=== PATIENT | male | born 1960 | race Caucasian/White ===

== ENCOUNTER 2017-04-30 14:40 | Emergency (ER) | payer SELFPAY ==
[~2017-04-30] VITALS: Ht 154.9 cm; Wt 54.5 kg
[~2017-04-30 14:40] MED LIST: OLAN5Z PO
[2017-04-30] MEDS ORDERED: GLIP10 PO (14:52)
[2017-04-30] MEDS ORDERED: METF500T4 PO (14:52)
[2017-04-30 15:01] LABS: GLUCOSE,POINT OF CARE 195 MG/DL (70-110)
[2017-04-30 18:13] LABS: APPEARANCE,URINE CLEAR (CLEAR); GLUCOSE, URINE (UA) >=1000 mg/dL (NEGATIVE); KETONES,URINE TRACE mg/dL (NEGATIVE); LEUKOCYTE ESTERASE ,URINE NEGATIVE (NEGATIVE); OCCULT BLOOD,URINE NEGATIVE (NEGATIVE); PH,URINE 6.5 (5.0-8.0); PROTEIN,URINE NEGATIVE (NEGATIVE)
[2017-04-30 18:16] LABS: RBC,URINE 0-2 /HPF (0-2); SQUAMOUS EPITHELIAL CELL,UR Rare /LPF (None Seen); WBC,URINE 0-2 /HPF (0-5)
[2017-04-30] MEDS ORDERED: HYDROCODONE/ACETAMINOPHEN 10-325 MG TABLET PO ONE (18:30)
[2017-04-30 19:16] VITALS: BP 121/81
== END 2017-04-30 19:17 | disposition home or self-care (01) ==
LOC: EMS 14:42
DX: K40.90 Unilateral inguinal hernia, without obstruction or gangrene, not specified as recurrent (principal); I10 Essential (primary) hypertension; E11.9 Type 2 diabetes mellitus without complications
CPT/HCPCS: 82962; 99283

== ENCOUNTER 2020-02-15 17:53 | Emergency (ER) | payer MEDICAID ==
[~2020-02-15] VITALS: Ht 170.2 cm; Wt 100.0 kg
[~2020-02-15 17:53] MED LIST changes: +GLIP10 PO; +METF-960 PO; -OLAN5Z PO
[2020-02-15] MEDS ORDERED: PROPARACAINE HCL 0.5% 15 ML OPHTHALMIC SOLUTION OU ONE (18:15)
[2020-02-15] MEDS ORDERED: ERYTHROMYCIN 0.5% 3.5 GM TUBE OPHTHALMIC OINTMENT OU ONE (18:15)
[2020-02-15] MEDS ORDERED: FLUORESCEIN SODIUM 1 MG STRIP OU ONE (18:15)
[2020-02-15] MEDS ORDERED: NEOMYCIN/BACITRACIN/POLYMYXIN B 3.5 GM OPHTHALMIC OINTMENT OU ONE (18:30)
[2020-02-15 19:06] VITALS: BP 160/70
== END 2020-02-15 19:20 | disposition home or self-care (01) ==
LOC: EMS 17:58
DX: H10.213 Acute toxic conjunctivitis, bilateral (principal); E11.9 Type 2 diabetes mellitus without complications; I10 Essential (primary) hypertension; Z79.84 Long term (current) use of oral hypoglycemic drugs

== ENCOUNTER 2021-12-13 17:28 | Inpatient (IN) | payer MEDICAID ==
[~2021-12-13] VITALS: Ht 167.6 cm; Wt 48.2 kg
[~2021-12-13 17:28] MED LIST changes: +METF-1211 PO; -METF-960 PO
[2021-12-13 19:30] LABS: BASOPHILS % (AUTO) 0.6 % (0.0-2.0); EOSINOPHILS % (AUTO) 0.3 % (1.0-6.0); HEMATOCRIT 37.4 % (41-53); HEMOGLOBIN 12.9 g/dL (13.5-17.5); LYMPHOCYTES # (AUTO) 0.5 K/uL (1.0-4.8); LYMPHOCYTES % (AUTO) 6.1 % (22.0-44.0); MEAN CORPUSCULAR HEMOGLOBIN 31.8 pg (26.0-34.0); MEAN CORPUSCULAR HGB CONC 34.5 G/dL (31.0-37.0); MEAN CORPUSCULAR VOLUME 92 fL (80-100); MONOCYTES # (AUTO) 0.4 K/uL (0.1-1.0); MONOCYTES % (AUTO) 4.5 % (2.0-9.0); NEUTROPHILS % (AUTO) 88.5 % (40.0-70.0); PLATELET COUNT (AUTO) 255 K/uL (150-450); RED BLOOD CELL COUNT(AUTO) 4.05 MIL/uL (4.50-5.90); RED CELL DISTRIBUTION WIDTH 14.2 % (11.5-14.5)
[2021-12-13 19:39] LABS: ANION GAP 5 mmol/L (8-16); CALCIUM, TOTAL 8.2 mg/dL (8.8-10.5); CARBON DIOXIDE 30 mmol/L (22-29); CHLORIDE 94 mmol/L (98-107); CREATININE 0.74 mg/dL (0.60-1.30); GLOMERULAR FILTR. RATE CALC > 60 mL/min (>60); GLUCOSE,RANDOM 234 mg/dL (70-110); SODIUM SERUM 129 mmol/L (136-145); UREA NITROGEN, BLOOD 13 mg/dL (7-18)
[2021-12-13 19:47] LABS: D-DIMER 35.2 mg/L FEU (0.00-0.50)
[2021-12-13 19:56] LABS: ALANINE AMINOTRANSFERASE 16 U/L (12-78); ALBUMIN 1.9 g/dL (3.4-5.0); ALKALINE PHOSPHATASE 121 U/L (46-116); ASPARTATE AMINOTRANSFERASE 17 U/L (15-37); BILIRUBIN,TOTAL 0.6 mg/dL (0.1-1.0); THYROID STIMULATING HORMONE 1.04 uIU/mL (0.36-3.74); TOTAL PROTEIN, SERUM 7.6 g/dL (6.4-8.2)
[2021-12-13 20:17] LABS: COVID AG,FIA SOURCE NASAL SWAB
[2021-12-13] MEDS ORDERED: SODIUM CHLORIDE 0.9% 100 ML ONE (20:45)
[2021-12-13] MEDS ORDERED: IOHEXOL 350 MG/ML 100 ML VIAL ONE (20:46)
[2021-12-13] MEDS ORDERED: HEPARIN SODIUM,PORCINE 5,000 UNITS/ML VIAL IVP PRN ×2 (22:45)
[2021-12-13] MEDS ORDERED: DOXYCYCLINE HYCLATE 100 MG in DEXTROSE 5%-WATER 100 ML IV ONE (22:45)
[2021-12-13] MEDS ORDERED: DEXAMETHASONE SOD PHOS 4 MG/ML 5 ML VIAL IVP ONE (22:45)
[2021-12-13] MEDS ORDERED: CefTRIAXone 1 GM/DEXTROSE 50 ML IV ONE (22:45)
[2021-12-13] MEDS ORDERED: HEPARIN SODIUM,PORCINE 5,000 UNITS/ML VIAL IVP ONE (22:45)
[2021-12-13] MEDS ORDERED: HEPARIN SODIUM 25000 UNITS/D5W 250 ML IV PRN (22:45)
[2021-12-13 23:09] LABS: INR 1.2 (0.9-1.1); PROTHROMBIN TIME 12.2 SEC (9.4-11.6)
[2021-12-13] MEDS ORDERED: ONDANSETRON HCL 4 MG/2 ML VIAL IVP PRN (23:30)
[2021-12-13] MEDS ORDERED: ENOXAPARIN SODIUM 60 MG/0.6 ML PF SYRINGE SQ SCH (23:45)
[2021-12-14] VITALS (7 sets, daily range): BP systolic 98–127; BP diastolic 62–77
[2021-12-14] MEDS ORDERED: INSULIN GLARGINE,HUM.REC.ANLOG 100 UNITS/ML SQ SCH
[2021-12-14] MEDS ORDERED: HEPARIN SODIUM,PORCINE 5,000 UNITS/ML VIAL SQ SCH
[2021-12-14] MEDS ORDERED: DEXTROSE 50%-WATER 25 GM/50 ML SYRINGE IVP PRN
[2021-12-14 01:00] LABS: GLUCOSE,POINT OF CARE 221 MG/DL (70-110)
[2021-12-14] MEDS: INSULIN GLARGINE,HUM.REC.ANLOG 100 UNITS/ML SQ SCH ×2 (03:25→21:23)
[2021-12-14 04:01] LABS: GLUCOMETER DEV NAME(LOC) 5S.2B; GLUCOSE,POINT OF CARE 244 MG/DL (70-110)
[2021-12-14 06:34] LABS: EOSINOPHILS % (AUTO) 0 % (1.0-6.0); HEMATOCRIT 38.3 % (41-53); HEMOGLOBIN 13.4 g/dL (13.5-17.5); LYMPHOCYTES # (AUTO) 0.4 K/uL (1.0-4.8); LYMPHOCYTES % (AUTO) 7.5 % (22.0-44.0); MEAN CORPUSCULAR HEMOGLOBIN 32.3 pg (26.0-34.0); MEAN CORPUSCULAR VOLUME 92 fL (80-100); MONOCYTES # (AUTO) 0.1 K/uL (0.1-1.0); MONOCYTES % (AUTO) 1.8 % (2.0-9.0); NEUTROPHILS # (AUTO) 5.3 K/uL (1.8-7.7); PLATELET COUNT (AUTO) 286 K/uL (150-450); RED BLOOD CELL COUNT(AUTO) 4.15 MIL/uL (4.50-5.90); RED CELL DISTRIBUTION WIDTH 14.1 % (11.5-14.5)
[2021-12-14 06:39] LABS: NEUTROPHILS % (AUTO) 90.7 % (40.0-70.0)
[2021-12-14] MEDS: INSULIN LISPRO 100 UNITS/ML SQ PRN ×4 (06:52→21:29)
[2021-12-14] MEDS ORDERED: SODIUM CHLORIDE 0.9% 1,000 ML ONE (07:56)
[2021-12-14] MEDS: ENOXAPARIN SODIUM 60 MG/0.6 ML PF SYRINGE SQ SCH ×2 (10:48→21:24)
[2021-12-14] MEDS: AZITHROMYCIN 500 MG/NS 250 ML IV SCH (10:49)
[2021-12-14 13:06] LABS: GLUCOMETER DEV NAME(LOC) 5S.1; GLUCOSE,POINT OF CARE 368 MG/DL (70-110)
[2021-12-14 16:51] LABS: GLUCOMETER DEV NAME(LOC) 5S.2B; GLUCOSE,POINT OF CARE 392 MG/DL (70-110)
[2021-12-14 20:06] LABS: GLUCOMETER DEV NAME(LOC) 5S.1; GLUCOSE,POINT OF CARE 332 MG/DL (70-110)
[2021-12-14 22:11] LABS: GLUCOMETER DEV NAME(LOC) 5S.2B; GLUCOSE,POINT OF CARE 303 MG/DL (70-110)
[2021-12-15] MEDS: CefTRIAXone 1 GM/DEXTROSE 50 ML IV SCH ×2 (00:25→22:50)
[2021-12-15 05:11] VITALS: BP 117/58
[2021-12-15] MEDS: INSULIN LISPRO 100 UNITS/ML SQ PRN ×4 (06:42→20:51)
[2021-12-15 06:51] LABS: APPEARANCE,URINE CLEAR (CLEAR); BILIRUBIN,URINE NEGATIVE (NEGATIVE); GLUCOSE, URINE (UA) 500 mg/dL (NEGATIVE); KETONES,URINE NEGATIVE (NEGATIVE); LEUKOCYTE ESTERASE ,URINE NEGATIVE (NEGATIVE); NITRATE,URINE NEGATIVE (NEGATIVE); OCCULT BLOOD,URINE NEGATIVE (NEGATIVE); PH,URINE 6.5 (5.0-8.0); PROTEIN,URINE NEGATIVE (NEGATIVE)
[2021-12-15 07:17] VITALS: BP 121/71
[2021-12-15 07:52] LABS: BACTERIA,URINE None Seen /HPF (None Seen); RBC,URINE None Seen /HPF (0-2); WBC,URINE None Seen /HPF (0-5)
[2021-12-15 07:56] LABS: GLUCOMETER DEV NAME(LOC) 5S.2B; GLUCOSE,POINT OF CARE 279 MG/DL (70-110)
[2021-12-15] MEDS: ENOXAPARIN SODIUM 60 MG/0.6 ML PF SYRINGE SQ SCH (07:57)
[2021-12-15] MEDS: AZITHROMYCIN 500 MG/NS 250 ML IV SCH (07:58)
[2021-12-15 08:41] LABS: MAGNESIUM 1.8 mg/dL (1.80-2.40); PHOSPHORUS 3.3 mg/dL (2.5-4.9)
[2021-12-15 11:07] VITALS: BP 136/82
[2021-12-15 12:06] LABS: GLUCOMETER DEV NAME(LOC) 5S.1; GLUCOSE,POINT OF CARE 325 MG/DL (70-110)
[2021-12-15] MEDS ORDERED: *CLINICAL-WARFARIN SODIUM DOSING CLINICAL ONE (14:15)
[2021-12-15] MEDS ORDERED: HEPARIN SODIUM 25000 UNITS/D5W 250 ML IV PRN (15:15)
[2021-12-15] MEDS ORDERED: HEPARIN SODIUM,PORCINE 5,000 UNITS/ML VIAL IVP ONE (15:15)
[2021-12-15] MEDS ORDERED: HEPARIN SODIUM,PORCINE 5,000 UNITS/ML VIAL IVP PRN ×2 (15:15)
[2021-12-15 16:04] LABS: BASOPHILS % (AUTO) 0.4 % (0.0-2.0); EOSINOPHILS % (AUTO) 0.3 % (1.0-6.0); HEMATOCRIT 38.8 % (41-53); HEMOGLOBIN 13.2 g/dL (13.5-17.5); LYMPHOCYTES # (AUTO) 0.6 K/uL (1.0-4.8); LYMPHOCYTES % (AUTO) 8.1 % (22.0-44.0); MEAN CORPUSCULAR HEMOGLOBIN 31.5 pg (26.0-34.0); MEAN CORPUSCULAR HGB CONC 33.9 G/dL (31.0-37.0); MEAN CORPUSCULAR VOLUME 93 fL (80-100); MONOCYTES # (AUTO) 0.3 K/uL (0.1-1.0); MONOCYTES % (AUTO) 4.2 % (2.0-9.0); PLATELET COUNT (AUTO) 300 K/uL (150-450); RED BLOOD CELL COUNT(AUTO) 4.17 MIL/uL (4.50-5.90); RED CELL DISTRIBUTION WIDTH 14.2 % (11.5-14.5)
[2021-12-15] MEDS ORDERED: WARFARIN SODIUM 5 MG TABLET PO ONE (17:00)
[2021-12-15] MEDS: MetFORMIN HCL 500 MG TABLET PO SCH (17:30)
[2021-12-15 19:17] VITALS: BP 123/76
[2021-12-15] MEDS: INSULIN GLARGINE,HUM.REC.ANLOG 100 UNITS/ML SQ SCH (20:49)
[2021-12-15] MEDS: ENOXAPARIN SODIUM 40 MG/0.4 ML PF SYRINGE SQ SCH (20:49)
[2021-12-15 21:06] LABS: GLUCOMETER DEV NAME(LOC) 5S.1; GLUCOSE,POINT OF CARE 226 MG/DL (70-110)
[2021-12-15 21:41] LABS: GLUCOMETER DEV NAME(LOC) 5N.3; GLUCOSE,POINT OF CARE 286 MG/DL (70-110)
[2021-12-15 23:35] VITALS: BP 115/77
[2021-12-16 04:20] VITALS: BP 118/51
[2021-12-16 06:44] LABS: BASOPHILS % (AUTO) 0.3 % (0.0-2.0); EOSINOPHILS % (AUTO) 0.7 % (1.0-6.0); HEMATOCRIT 36.7 % (41-53); HEMOGLOBIN 12.9 g/dL (13.5-17.5); LYMPHOCYTES # (AUTO) 0.8 K/uL (1.0-4.8); LYMPHOCYTES % (AUTO) 14.7 % (22.0-44.0); MEAN CORPUSCULAR VOLUME 91 fL (80-100); MONOCYTES # (AUTO) 0.3 K/uL (0.1-1.0); NEUTROPHILS # (AUTO) 4.5 K/uL (1.8-7.7); NEUTROPHILS % (AUTO) 78.3 % (40.0-70.0); PLATELET COUNT (AUTO) 299 K/uL (150-450); RED BLOOD CELL COUNT(AUTO) 4.02 MIL/uL (4.50-5.90); RED CELL DISTRIBUTION WIDTH 14.2 % (11.5-14.5)
[2021-12-16] MEDS: INSULIN LISPRO 100 UNITS/ML SQ PRN ×4 (06:49→21:19)
[2021-12-16 07:03] LABS: ANION GAP 5 mmol/L (8-16); CALCIUM, TOTAL 8.1 mg/dL (8.8-10.5); CARBON DIOXIDE 30 mmol/L (22-29); CHLORIDE 95 mmol/L (98-107); CREATININE 0.67 mg/dL (0.60-1.30); GLOMERULAR FILTR. RATE CALC > 60 mL/min (>60); GLUCOSE,RANDOM 198 mg/dL (70-110); POTASSIUM 4.2 mmol/L (3.5-5.1); SODIUM SERUM 130 mmol/L (136-145); UREA NITROGEN, BLOOD 11 mg/dL (7-18)
[2021-12-16 07:07] VITALS: BP 120/69
[2021-12-16 07:08] LABS: INR 1.1 (0.9-1.1); PROTHROMBIN TIME 11.3 SEC (9.4-11.6)
[2021-12-16] MEDS: MetFORMIN HCL 500 MG TABLET PO SCH ×2 (08:06→17:12)
[2021-12-16] MEDS: ENOXAPARIN SODIUM 40 MG/0.4 ML PF SYRINGE SQ SCH ×2 (08:07→21:19)
[2021-12-16] MEDS: AZITHROMYCIN 500 MG/NS 250 ML IV SCH (08:08)
[2021-12-16 11:13] VITALS: BP 108/64
[2021-12-16 11:41] LABS: GLUCOMETER DEV NAME(LOC) 5N.3; GLUCOSE,POINT OF CARE 300 MG/DL (70-110)
[2021-12-16] MEDS ORDERED: WARFARIN SODIUM-INR 2.0-3.0-RX DOSING PER PROTOCOL PO PRN (12:45)
[2021-12-16 15:21] VITALS: BP 101/65
[2021-12-16] MEDS ORDERED: WARFARIN SODIUM 5 MG TABLET PO SCH (17:00)
[2021-12-16 19:15] VITALS: BP 114/64
[2021-12-16 19:21] LABS: GLUCOMETER DEV NAME(LOC) 5S.1; GLUCOSE,POINT OF CARE 222 MG/DL (70-110)
[2021-12-16 19:21] LABS: GLUCOMETER DEV NAME(LOC) 5S.1; GLUCOSE,POINT OF CARE 206 MG/DL (70-110)
[2021-12-16] MEDS ORDERED: INSULIN GLARGINE,HUM.REC.ANLOG 100 UNITS/ML SQ SCH (21:00)
[2021-12-16 21:01] LABS: GLUCOMETER DEV NAME(LOC) 5S.1; GLUCOSE,POINT OF CARE 249 MG/DL (70-110)
[2021-12-16] MEDS: CefTRIAXone 1 GM/DEXTROSE 50 ML IV SCH (23:00)
[2021-12-16 23:45] VITALS: BP 106/66
[2021-12-17 04:20] VITALS: BP 110/61
[2021-12-17] MEDS: INSULIN LISPRO 100 UNITS/ML SQ PRN ×4 (06:25→20:53)
[2021-12-17 06:26] LABS: GLUCOMETER DEV NAME(LOC) 5S.1; GLUCOSE,POINT OF CARE 201 MG/DL (70-110)
[2021-12-17 07:39] VITALS: BP 114/70
[2021-12-17 07:44] LABS: BASOPHILS % (AUTO) 0.5 % (0.0-2.0); EOSINOPHILS % (AUTO) 0.6 % (1.0-6.0); HEMATOCRIT 38.6 % (41-53); HEMOGLOBIN 13.5 g/dL (13.5-17.5); LYMPHOCYTES # (AUTO) 0.7 K/uL (1.0-4.8); LYMPHOCYTES % (AUTO) 10.2 % (22.0-44.0); MEAN CORPUSCULAR HEMOGLOBIN 32.2 pg (26.0-34.0); MEAN CORPUSCULAR HGB CONC 34.9 G/dL (31.0-37.0); MEAN CORPUSCULAR VOLUME 92 fL (80-100); MONOCYTES # (AUTO) 0.4 K/uL (0.1-1.0); MONOCYTES % (AUTO) 5.9 % (2.0-9.0); NEUTROPHILS # (AUTO) 5.6 K/uL (1.8-7.7); NEUTROPHILS % (AUTO) 82.8 % (40.0-70.0); PLATELET COUNT (AUTO) 308 K/uL (150-450); RED BLOOD CELL COUNT(AUTO) 4.19 MIL/uL (4.50-5.90); RED CELL DISTRIBUTION WIDTH 14.3 % (11.5-14.5)
[2021-12-17] MEDS: MetFORMIN HCL 500 MG TABLET PO SCH ×2 (08:10→17:11)
[2021-12-17 08:11] LABS: INR 1.2 (0.9-1.1); PROTHROMBIN TIME 12.4 SEC (9.4-11.6)
[2021-12-17] MEDS: ENOXAPARIN SODIUM 40 MG/0.4 ML PF SYRINGE SQ SCH ×2 (08:11→20:00)
[2021-12-17] MEDS: AZITHROMYCIN 500 MG/NS 250 ML IV SCH (08:12)
[2021-12-17 10:51] VITALS: BP 113/68
[2021-12-17 13:11] LABS: GLUCOMETER DEV NAME(LOC) 5S.1; GLUCOSE,POINT OF CARE 237 MG/DL (70-110)
[2021-12-17 15:46] VITALS: BP 133/68
[2021-12-17] MEDS ORDERED: WARFARIN SODIUM 5 MG TABLET PO SCH (17:00)
[2021-12-17 17:16] LABS: GLUCOMETER DEV NAME(LOC) 5S.1; GLUCOSE,POINT OF CARE 228 MG/DL (70-110)
[2021-12-17 20:36] LABS: GLUCOMETER DEV NAME(LOC) 5S.2B; GLUCOSE,POINT OF CARE 245 MG/DL (70-110)
[2021-12-17] MEDS: INSULIN GLARGINE,HUM.REC.ANLOG 100 UNITS/ML SQ SCH (20:53)
[2021-12-17 21:16] VITALS: BP 109/63
[2021-12-17] MEDS: CefTRIAXone 1 GM/DEXTROSE 50 ML IV SCH (22:45)
[2021-12-18 01:48] VITALS: BP 99/60
[2021-12-18 05:57] LABS: GLUCOMETER DEV NAME(LOC) 5S.1; GLUCOSE,POINT OF CARE 183 MG/DL (70-110)
[2021-12-18] MEDS: INSULIN LISPRO 100 UNITS/ML SQ PRN ×4 (06:17→21:08)
[2021-12-18 08:10] LABS: BASOPHILS % (AUTO) 0.4 % (0.0-2.0); EOSINOPHILS % (AUTO) 0.7 % (1.0-6.0); HEMATOCRIT 37.4 % (41-53); HEMOGLOBIN 12.9 g/dL (13.5-17.5); LYMPHOCYTES # (AUTO) 0.7 K/uL (1.0-4.8); LYMPHOCYTES % (AUTO) 9.2 % (22.0-44.0); MEAN CORPUSCULAR HEMOGLOBIN 31.7 pg (26.0-34.0); MEAN CORPUSCULAR HGB CONC 34.4 G/dL (31.0-37.0); MEAN CORPUSCULAR VOLUME 92 fL (80-100); MONOCYTES # (AUTO) 0.4 K/uL (0.1-1.0); MONOCYTES % (AUTO) 5.8 % (2.0-9.0); NEUTROPHILS # (AUTO) 6.5 K/uL (1.8-7.7); NEUTROPHILS % (AUTO) 83.9 % (40.0-70.0); PLATELET COUNT (AUTO) 337 K/uL (150-450); RED BLOOD CELL COUNT(AUTO) 4.06 MIL/uL (4.50-5.90); RED CELL DISTRIBUTION WIDTH 14.6 % (11.5-14.5)
[2021-12-18 08:20] LABS: INR 1.1 (0.9-1.1); PROTHROMBIN TIME 11.9 SEC (9.4-11.6)
[2021-12-18] MEDS: MetFORMIN HCL 500 MG TABLET PO SCH ×2 (08:57→18:09)
[2021-12-18] MEDS: AZITHROMYCIN 500 MG/NS 250 ML IV SCH (08:57)
[2021-12-18] MEDS: ENOXAPARIN SODIUM 40 MG/0.4 ML PF SYRINGE SQ SCH ×2 (09:05→21:05)
[2021-12-18 09:50] VITALS: BP 119/69
[2021-12-18 12:11] LABS: GLUCOMETER DEV NAME(LOC) 5S.1; GLUCOSE,POINT OF CARE 221 MG/DL (70-110)
[2021-12-18 14:12] VITALS: BP 141/70
[2021-12-18 16:41] LABS: GLUCOMETER DEV NAME(LOC) 5S.1; GLUCOSE,POINT OF CARE 171 MG/DL (70-110)
[2021-12-18] MEDS ORDERED: WARFARIN SODIUM 5 MG TABLET PO ONE (17:00)
[2021-12-18 17:20] VITALS: BP 123/84
[2021-12-18 20:35] VITALS: BP 129/73
[2021-12-18] MEDS: INSULIN GLARGINE,HUM.REC.ANLOG 100 UNITS/ML SQ SCH (21:06)
[2021-12-18 21:27] LABS: GLUCOMETER DEV NAME(LOC) 5S.1; GLUCOSE,POINT OF CARE 221 MG/DL (70-110)
[2021-12-18] MEDS: CefTRIAXone 1 GM/DEXTROSE 50 ML IV SCH (22:12)
[2021-12-19] VITALS (7 sets, daily range): BP systolic 101–142; BP diastolic 60–77
[2021-12-19 06:06] LABS: HEPATITIS C AB (EIA) <0.1 s/co ratio (0.0-0.9); HIV 1-2 SCREEN 4TH GEN W/RFLX Non Reactive (Non Reactive)
[2021-12-19 06:21] LABS: GLUCOMETER DEV NAME(LOC) 5S.1; GLUCOSE,POINT OF CARE 109 MG/DL (70-110)
[2021-12-19 07:23] LABS: INR 1.3 (0.9-1.1); PROTHROMBIN TIME 13.6 SEC (9.4-11.6)
[2021-12-19] MEDS: AZITHROMYCIN 500 MG/NS 250 ML IV SCH (08:06)
[2021-12-19] MEDS: ENOXAPARIN SODIUM 40 MG/0.4 ML PF SYRINGE SQ SCH ×2 (08:07→21:00)
[2021-12-19] MEDS: MetFORMIN HCL 500 MG TABLET PO SCH ×2 (08:07→17:12)
[2021-12-19] MEDS: INSULIN LISPRO 100 UNITS/ML SQ PRN ×3 (11:29→21:02)
[2021-12-19 12:32] LABS: GLUCOMETER DEV NAME(LOC) 5S.2B; GLUCOSE,POINT OF CARE 234 MG/DL (70-110)
[2021-12-19] MEDS ORDERED: WARFARIN SODIUM 5 MG TABLET PO ONE (17:00)
[2021-12-19 20:37] LABS: GLUCOMETER DEV NAME(LOC) 5S.2B; GLUCOSE,POINT OF CARE 238 MG/DL (70-110)
[2021-12-19 20:46] LABS: GLUCOMETER DEV NAME(LOC) 5S.1; GLUCOSE,POINT OF CARE 210 MG/DL (70-110)
[2021-12-19] MEDS: ACETAMINOPHEN 325 MG TABLET PO PRN (21:00)
[2021-12-19] MEDS: INSULIN GLARGINE,HUM.REC.ANLOG 100 UNITS/ML SQ SCH (21:01)
[2021-12-19] MEDS: CefTRIAXone 1 GM/DEXTROSE 50 ML IV SCH (22:23)
[2021-12-20 04:38] VITALS: BP 108/67
[2021-12-20 05:26] LABS: GLUCOMETER DEV NAME(LOC) 5S.2B; GLUCOSE,POINT OF CARE 88 MG/DL (70-110)
[2021-12-20 07:27] LABS: BASOPHILS % (AUTO) 0.3 % (0.0-2.0); HEMATOCRIT 36.1 % (41-53); HEMOGLOBIN 12.4 g/dL (13.5-17.5); LYMPHOCYTES # (AUTO) 0.6 K/uL (1.0-4.8); LYMPHOCYTES % (AUTO) 8.7 % (22.0-44.0); MEAN CORPUSCULAR HEMOGLOBIN 31.4 pg (26.0-34.0); MEAN CORPUSCULAR HGB CONC 34.4 G/dL (31.0-37.0); MEAN CORPUSCULAR VOLUME 92 fL (80-100); MONOCYTES # (AUTO) 0.4 K/uL (0.1-1.0); MONOCYTES % (AUTO) 5.9 % (2.0-9.0); NEUTROPHILS # (AUTO) 5.9 K/uL (1.8-7.7); NEUTROPHILS % (AUTO) 84.1 % (40.0-70.0); PLATELET COUNT (AUTO) 356 K/uL (150-450); RED BLOOD CELL COUNT(AUTO) 3.94 MIL/uL (4.50-5.90); RED CELL DISTRIBUTION WIDTH 14.2 % (11.5-14.5)
[2021-12-20 07:55] LABS: INR 2.3 (0.9-1.1); PROTHROMBIN TIME 23.1 SEC (9.4-11.6)
[2021-12-20] MEDS: MetFORMIN HCL 500 MG TABLET PO SCH ×2 (08:38→18:08)
[2021-12-20] MEDS: OXYGEN THERAPY IH SCH ×2 (08:41→20:34)
[2021-12-20 09:08] VITALS: BP 111/57
[2021-12-20] MEDS: AZITHROMYCIN 500 MG/NS 250 ML IV SCH (09:26)
[2021-12-20] MEDS: ENOXAPARIN SODIUM 40 MG/0.4 ML PF SYRINGE SQ SCH ×2 (09:28→20:25)
[2021-12-20] MEDS: INSULIN LISPRO 100 UNITS/ML SQ PRN ×4 (12:05→20:31)
[2021-12-20 12:11] LABS: GLUCOMETER DEV NAME(LOC) 5S.2B; GLUCOSE,POINT OF CARE 190 MG/DL (70-110)
[2021-12-20 12:24] VITALS: BP 117/59
[2021-12-20 15:22] VITALS: BP 109/68
[2021-12-20] MEDS ORDERED: WARFARIN SODIUM 5 MG TABLET PO ONE (17:00)
[2021-12-20 19:42] VITALS: BP 111/64
[2021-12-20 20:12] LABS: GLUCOMETER DEV NAME(LOC) 5S.2B; GLUCOSE,POINT OF CARE 244 MG/DL (70-110)
[2021-12-20] MEDS: INSULIN GLARGINE,HUM.REC.ANLOG 100 UNITS/ML SQ SCH (20:28)
[2021-12-20 21:06] LABS: GLUCOMETER DEV NAME(LOC) 5S.2B; GLUCOSE,POINT OF CARE 248 MG/DL (70-110)
[2021-12-20] MEDS: CefTRIAXone 1 GM/DEXTROSE 50 ML IV SCH (22:43)
[2021-12-21 00:03] VITALS: BP 106/67
[2021-12-21 04:45] VITALS: BP 120/70
[2021-12-21 06:46] LABS: GLUCOMETER DEV NAME(LOC) 5S.2B; GLUCOSE,POINT OF CARE 96 MG/DL (70-110)
[2021-12-21] MEDS: ENOXAPARIN SODIUM 40 MG/0.4 ML PF SYRINGE SQ SCH ×2 (09:44→20:10)
[2021-12-21] MEDS: AZITHROMYCIN 500 MG/NS 250 ML IV SCH (09:44)
[2021-12-21] MEDS: MetFORMIN HCL 500 MG TABLET PO SCH ×2 (09:44→17:39)
[2021-12-21] MEDS: OXYGEN THERAPY IH SCH ×2 (09:44→20:18)
[2021-12-21] MEDS ORDERED: ALBUTEROL SULFATE 2.5 MG/0.5 ML NEB SOLUTION NEB PRN (12:15)
[2021-12-21 13:26] LABS: GLUCOMETER DEV NAME(LOC) 5S.2B; GLUCOSE,POINT OF CARE 189 MG/DL (70-110)
[2021-12-21 16:26] VITALS: BP 118/73
[2021-12-21] MEDS ORDERED: WARFARIN SODIUM 2.5 MG TABLET PO ONE (17:00)
[2021-12-21 17:37] LABS: GLUCOMETER DEV NAME(LOC) 5N.1C; GLUCOSE,POINT OF CARE 170 MG/DL (70-110)
[2021-12-21] MEDS: INSULIN LISPRO 100 UNITS/ML SQ PRN ×2 (17:40→20:13)
[2021-12-21 20:11] VITALS: BP 128/76
[2021-12-21] MEDS: INSULIN GLARGINE,HUM.REC.ANLOG 100 UNITS/ML SQ SCH (20:12)
[2021-12-21] MEDS: CefTRIAXone 1 GM/DEXTROSE 50 ML IV SCH (22:51)
[2021-12-21 23:01] VITALS: BP 113/69
[2021-12-22 01:16] LABS: GLUCOMETER DEV NAME(LOC) 5N.1C; GLUCOSE,POINT OF CARE 166 MG/DL (70-110)
[2021-12-22 04:22] VITALS: BP 126/73
[2021-12-22] MEDS: INSULIN LISPRO 100 UNITS/ML SQ PRN ×4 (05:46→20:01)
[2021-12-22] MEDS: ACETAMINOPHEN 325 MG TABLET PO PRN (05:47)
[2021-12-22 07:28] VITALS: BP 111/67
[2021-12-22 07:33] LABS: BASOPHILS % (AUTO) 0.3 % (0.0-2.0); HEMATOCRIT 35.1 % (41-53); LYMPHOCYTES # (AUTO) 0.6 K/uL (1.0-4.8); LYMPHOCYTES % (AUTO) 8.2 % (22.0-44.0); MEAN CORPUSCULAR HEMOGLOBIN 31.2 pg (26.0-34.0); MEAN CORPUSCULAR HGB CONC 34.2 G/dL (31.0-37.0); MEAN CORPUSCULAR VOLUME 91 fL (80-100); MONOCYTES # (AUTO) 0.5 K/uL (0.1-1.0); MONOCYTES % (AUTO) 6.2 % (2.0-9.0); NEUTROPHILS # (AUTO) 6.5 K/uL (1.8-7.7); NEUTROPHILS % (AUTO) 84.3 % (40.0-70.0); PLATELET COUNT (AUTO) 297 K/uL (150-450); RED BLOOD CELL COUNT(AUTO) 3.84 MIL/uL (4.50-5.90); RED CELL DISTRIBUTION WIDTH 14.3 % (11.5-14.5)
[2021-12-22 07:37] LABS: INR 2.7 (0.9-1.1); PROTHROMBIN TIME 26.1 SEC (9.4-11.6)
[2021-12-22 07:50] LABS: ALANINE AMINOTRANSFERASE 21 U/L (12-78); ALBUMIN 1.7 g/dL (3.4-5.0); ALKALINE PHOSPHATASE 155 U/L (46-116); ANION GAP 9 mmol/L (8-16); ASPARTATE AMINOTRANSFERASE 21 U/L (15-37); BILIRUBIN,TOTAL 0.2 mg/dL (0.1-1.0); CALCIUM, TOTAL 8.3 mg/dL (8.8-10.5); CARBON DIOXIDE 28 mmol/L (22-29); CHLORIDE 94 mmol/L (98-107); CREATININE 0.56 mg/dL (0.60-1.30); GLUCOSE,RANDOM 157 mg/dL (70-110); POTASSIUM 4.3 mmol/L (3.5-5.1); SODIUM SERUM 131 mmol/L (136-145); UREA NITROGEN, BLOOD 14 mg/dL (7-18)
[2021-12-22 07:58] LABS: GLOMERULAR FILTR. RATE CALC > 60 mL/min (>60)
[2021-12-22] MEDS: AZITHROMYCIN 500 MG/NS 250 ML IV SCH (08:09)
[2021-12-22] MEDS: MetFORMIN HCL 500 MG TABLET PO SCH ×2 (08:09→17:29)
[2021-12-22] MEDS: ENOXAPARIN SODIUM 40 MG/0.4 ML PF SYRINGE SQ SCH (08:10)
[2021-12-22] MEDS: OXYGEN THERAPY IH SCH ×2 (08:10→20:00)
[2021-12-22 08:46] LABS: GLUCOMETER DEV NAME(LOC) 5N.3; GLUCOSE,POINT OF CARE 161 MG/DL (70-110)
[2021-12-22 14:04] VITALS: BP 127/74
[2021-12-22 15:36] VITALS: BP 120/74
[2021-12-22] MEDS ORDERED: WARFARIN SODIUM 2 MG TABLET PO ONE (17:00)
[2021-12-22 17:01] LABS: GLUCOMETER DEV NAME(LOC) 5N.3; GLUCOSE,POINT OF CARE 151 MG/DL (70-110)
[2021-12-22 17:17] LABS: GLUCOMETER DEV NAME(LOC) 5N.1C; GLUCOSE,POINT OF CARE 227 MG/DL (70-110)
[2021-12-22 19:30] VITALS: BP 131/76
[2021-12-22] MEDS: INSULIN GLARGINE,HUM.REC.ANLOG 100 UNITS/ML SQ SCH (20:01)
[2021-12-22] MEDS: CefTRIAXone 1 GM/DEXTROSE 50 ML IV SCH (22:51)
[2021-12-23 00:22] VITALS: BP 103/59
[2021-12-23 04:06] VITALS: BP 120/72
[2021-12-23 04:11] LABS: GLUCOMETER DEV NAME(LOC) 5N.3; GLUCOSE,POINT OF CARE 177 MG/DL (70-110)
[2021-12-23] MEDS: INSULIN LISPRO 100 UNITS/ML SQ PRN ×4 (05:37→20:35)
[2021-12-23 08:19] LABS: BASOPHILS % (AUTO) 0.2 % (0.0-2.0); EOSINOPHILS % (AUTO) 0.6 % (1.0-6.0); HEMATOCRIT 35.6 % (41-53); LYMPHOCYTES # (AUTO) 0.7 K/uL (1.0-4.8); LYMPHOCYTES % (AUTO) 6.9 % (22.0-44.0); MEAN CORPUSCULAR HEMOGLOBIN 30.9 pg (26.0-34.0); MEAN CORPUSCULAR HGB CONC 33.7 G/dL (31.0-37.0); MEAN CORPUSCULAR VOLUME 92 fL (80-100); MONOCYTES # (AUTO) 0.6 K/uL (0.1-1.0); MONOCYTES % (AUTO) 5.6 % (2.0-9.0); NEUTROPHILS # (AUTO) 8.7 K/uL (1.8-7.7); PLATELET COUNT (AUTO) 230 K/uL (150-450); RED BLOOD CELL COUNT(AUTO) 3.89 MIL/uL (4.50-5.90); RED CELL DISTRIBUTION WIDTH 14.7 % (11.5-14.5)
[2021-12-23 08:23] LABS: NEUTROPHILS % (AUTO) 86.7 % (40.0-70.0)
[2021-12-23 08:25] LABS: ANION GAP 4 mmol/L (8-16); CALCIUM, TOTAL 8.3 mg/dL (8.8-10.5); CARBON DIOXIDE 31 mmol/L (22-29); CHLORIDE 96 mmol/L (98-107); CREATININE 0.44 mg/dL (0.60-1.30); GLUCOSE,RANDOM 126 mg/dL (70-110); POTASSIUM 4.2 mmol/L (3.5-5.1); SODIUM SERUM 131 mmol/L (136-145); UREA NITROGEN, BLOOD 13 mg/dL (7-18)
[2021-12-23 08:26] LABS: GLOMERULAR FILTR. RATE CALC > 60 mL/min (>60)
[2021-12-23 08:34] LABS: INR 2.6 (0.9-1.1); PROTHROMBIN TIME 25.3 SEC (9.4-11.6)
[2021-12-23 08:47] VITALS: BP 111/62
[2021-12-23] MEDS: MetFORMIN HCL 500 MG TABLET PO SCH ×2 (08:51→17:14)
[2021-12-23] MEDS: AZITHROMYCIN 500 MG/NS 250 ML IV SCH (08:54)
[2021-12-23] MEDS: ACETAMINOPHEN 325 MG TABLET PO PRN (09:47)
[2021-12-23 12:14] VITALS: BP 118/68
[2021-12-23 12:21] LABS: GLUCOMETER DEV NAME(LOC) 5N.3; GLUCOSE,POINT OF CARE 193 MG/DL (70-110)
[2021-12-23 16:23] VITALS: BP 145/75
[2021-12-23] MEDS ORDERED: WARFARIN SODIUM 2 MG TABLET PO ONE (17:00)
[2021-12-23 19:36] LABS: GLUCOMETER DEV NAME(LOC) 5N.1C; GLUCOSE,POINT OF CARE 206 MG/DL (70-110)
[2021-12-23 20:36] LABS: GLUCOMETER DEV NAME(LOC) 5N.1C; GLUCOSE,POINT OF CARE 156 MG/DL (70-110)
[2021-12-23] MEDS: OXYGEN THERAPY IH SCH (20:36)
[2021-12-23] MEDS: INSULIN GLARGINE,HUM.REC.ANLOG 100 UNITS/ML SQ SCH (20:36)
[2021-12-23 21:26] LABS: GLUCOMETER DEV NAME(LOC) 5N.3; GLUCOSE,POINT OF CARE 170 MG/DL (70-110)
[2021-12-23 21:48] VITALS: BP 125/74
[2021-12-23] MEDS: CefTRIAXone 1 GM/DEXTROSE 50 ML IV SCH (22:48)
[2021-12-24 00:35] VITALS: BP 104/66
[2021-12-24 04:05] VITALS: BP 119/69
[2021-12-24 06:11] LABS: GLUCOMETER DEV NAME(LOC) 5N.3; GLUCOSE,POINT OF CARE 153 MG/DL (70-110)
[2021-12-24 06:18] LABS: BASOPHILS % (AUTO) 0.4 % (0.0-2.0); EOSINOPHILS % (AUTO) 1.3 % (1.0-6.0); HEMATOCRIT 35.7 % (41-53); LYMPHOCYTES # (AUTO) 0.9 K/uL (1.0-4.8); LYMPHOCYTES % (AUTO) 9.2 % (22.0-44.0); MEAN CORPUSCULAR HGB CONC 33.6 G/dL (31.0-37.0); MEAN CORPUSCULAR VOLUME 92 fL (80-100); MONOCYTES # (AUTO) 0.6 K/uL (0.1-1.0); MONOCYTES % (AUTO) 5.8 % (2.0-9.0); NEUTROPHILS % (AUTO) 83.3 % (40.0-70.0); PLATELET COUNT (AUTO) 211 K/uL (150-450); RED BLOOD CELL COUNT(AUTO) 3.87 MIL/uL (4.50-5.90); RED CELL DISTRIBUTION WIDTH 14.5 % (11.5-14.5)
[2021-12-24 06:34] LABS: ANION GAP 9 mmol/L (8-16); CALCIUM, TOTAL 8.2 mg/dL (8.8-10.5); CARBON DIOXIDE 29 mmol/L (22-29); CHLORIDE 94 mmol/L (98-107); GLOMERULAR FILTR. RATE CALC > 60 mL/min (>60); GLUCOSE,RANDOM 147 mg/dL (70-110); POTASSIUM 4.4 mmol/L (3.5-5.1); SODIUM SERUM 132 mmol/L (136-145); UREA NITROGEN, BLOOD 12 mg/dL (7-18)
[2021-12-24 06:40] LABS: INR 2.8 (0.9-1.1); PROTHROMBIN TIME 27.5 SEC (9.4-11.6)
[2021-12-24] MEDS: OXYGEN THERAPY IH SCH ×2 (08:13→20:42)
[2021-12-24] MEDS: MetFORMIN HCL 500 MG TABLET PO SCH ×2 (08:13→17:55)
[2021-12-24] MEDS: AZITHROMYCIN 500 MG/NS 250 ML IV SCH (08:47)
[2021-12-24 09:00] VITALS: BP 121/70
[2021-12-24] MEDS: INSULIN LISPRO 100 UNITS/ML SQ PRN ×3 (11:43→20:36)
[2021-12-24 11:51] LABS: GLUCOMETER DEV NAME(LOC) 5N.3; GLUCOSE,POINT OF CARE 186 MG/DL (70-110)
[2021-12-24 13:13] VITALS: BP 141/79
[2021-12-24] MEDS ORDERED: WARFARIN SODIUM 3 MG TABLET PO ONE (17:00)
[2021-12-24 17:06] LABS: GLUCOMETER DEV NAME(LOC) 5N.3; GLUCOSE,POINT OF CARE 197 MG/DL (70-110)
[2021-12-24 20:00] VITALS: BP 132/74
[2021-12-24] MEDS: INSULIN GLARGINE,HUM.REC.ANLOG 100 UNITS/ML SQ SCH (20:35)
[2021-12-24] MEDS: CefTRIAXone 1 GM/DEXTROSE 50 ML IV SCH (22:25)
[2021-12-25] VITALS: BP 122/71
[2021-12-25 01:36] LABS: GLUCOMETER DEV NAME(LOC) 5S.2B; GLUCOSE,POINT OF CARE 221 MG/DL (70-110)
[2021-12-25 04:56] VITALS: BP 122/69
[2021-12-25] MEDS: IPRATROPIUM BROMIDE 0.5 MG/2.5 ML NEB SOLUTION NEB PRN ×2 (04:56→16:03)
[2021-12-25 07:16] VITALS: BP 115/70
[2021-12-25 07:27] LABS: BASOPHILS % (AUTO) 0.4 % (0.0-2.0); EOSINOPHILS % (AUTO) 0.5 % (1.0-6.0); LYMPHOCYTES # (AUTO) 1.1 K/uL (1.0-4.8); LYMPHOCYTES % (AUTO) 7.7 % (22.0-44.0); MEAN CORPUSCULAR HEMOGLOBIN 30.8 pg (26.0-34.0); MEAN CORPUSCULAR HGB CONC 33.6 G/dL (31.0-37.0); MEAN CORPUSCULAR VOLUME 92 fL (80-100); MONOCYTES # (AUTO) 0.9 K/uL (0.1-1.0); MONOCYTES % (AUTO) 6.3 % (2.0-9.0); NEUTROPHILS # (AUTO) 12.6 K/uL (1.8-7.7); NEUTROPHILS % (AUTO) 85.1 % (40.0-70.0); PLATELET COUNT (AUTO) 237 K/uL (150-450); RED CELL DISTRIBUTION WIDTH 14.3 % (11.5-14.5)
[2021-12-25 07:39] LABS: HEMOGLOBIN 11.8 g/dL (13.5-17.5)
[2021-12-25 07:41] LABS: INR 2.3 (0.9-1.1); PROTHROMBIN TIME 22.7 SEC (9.4-11.6)
[2021-12-25] MEDS: MetFORMIN HCL 500 MG TABLET PO SCH ×2 (08:42→17:29)
[2021-12-25] MEDS: AZITHROMYCIN 500 MG/NS 250 ML IV SCH (08:43)
[2021-12-25 09:09] LABS: ANION GAP 7 mmol/L (8-16); CALCIUM, TOTAL 8.3 mg/dL (8.8-10.5); CARBON DIOXIDE 31 mmol/L (22-29); CHLORIDE 95 mmol/L (98-107); CREATININE 0.54 mg/dL (0.60-1.30); GLUCOSE,RANDOM 158 mg/dL (70-110); POTASSIUM 4.2 mmol/L (3.5-5.1); SODIUM SERUM 133 mmol/L (136-145); UREA NITROGEN, BLOOD 14 mg/dL (7-18)
[2021-12-25 09:14] LABS: GLOMERULAR FILTR. RATE CALC > 60 mL/min (>60)
[2021-12-25 09:15] LABS: ALANINE AMINOTRANSFERASE 21 U/L (12-78); ALBUMIN 1.6 g/dL (3.4-5.0); ALKALINE PHOSPHATASE 174 U/L (46-116); ASPARTATE AMINOTRANSFERASE 24 U/L (15-37); BILIRUBIN,TOTAL 0.4 mg/dL (0.1-1.0); TOTAL PROTEIN, SERUM 7.4 g/dL (6.4-8.2)
[2021-12-25] MEDS: OXYGEN THERAPY IH SCH (10:06)
[2021-12-25] MEDS: INSULIN LISPRO 100 UNITS/ML SQ PRN ×3 (11:54→20:45)
[2021-12-25 11:56] VITALS: BP 142/60
[2021-12-25 12:02] LABS: GLUCOMETER DEV NAME(LOC) 5S.2B; GLUCOSE,POINT OF CARE 136 MG/DL (70-110)
[2021-12-25 12:58] LABS: ABG BASE EXCESS 5.6 mmol/L (-2.0-3.0); ABG CARBOXYHEMOGLOBIN 1.1 % (0.0-1.5); ABG HCO3 28.9 mmol/L (22.0-26.0); ABG METHEMOGLOBIN 0.3 % (0.0-1.5); ABG OXYGEN SATURATION 90.9 % (95.0-98.0); ABG OXYHEMOGLOBIN 89.6 % (94.0-100.0); ABG PCO2 41 mmHg (35-45); ABG PH 7.468 (7.35-7.450); ABG TOTAL HEMOGLOBIN 12.7 G/dL (12.0-18.0); PO2, ARTERIAL BG 56.4 mmHg (79.0-87.0); SOURCE, BLOOD GAS ARTERIAL
[2021-12-25 12:59] LABS: SITE, BLOOD GAS RT RADIAL
[2021-12-25 13:00] LABS: ABG A-A DIFF O2 123.6 mmHg (10-20.0); O2 DEVICE,BLOOD GAS NC (ROOM AIR)
[2021-12-25] MEDS ORDERED: ALBUTEROL SULFATE 2.5 MG/0.5 ML NEB SOLUTION NEB PRN (13:00)
[2021-12-25 13:01] LABS: GLUCOMETER DEV NAME(LOC) 5N.3; GLUCOSE,POINT OF CARE 220 MG/DL (70-110)
[2021-12-25 15:57] VITALS: BP 128/72
[2021-12-25 16:01] LABS: APPEARANCE,URINE CLEAR (CLEAR); BILIRUBIN,URINE NEGATIVE (NEGATIVE); GLUCOSE, URINE (UA) 500 mg/dL (NEGATIVE); KETONES,URINE NEGATIVE (NEGATIVE); LEUKOCYTE ESTERASE ,URINE NEGATIVE (NEGATIVE); NITRATE,URINE NEGATIVE (NEGATIVE); OCCULT BLOOD,URINE NEGATIVE (NEGATIVE); PROTEIN,URINE TRACE (NEGATIVE); UROBILINOGEN,URINE 0.2 mg/dL (<=1.0)
[2021-12-25] MEDS: ALBUTEROL SULFATE 2.5 MG/0.5 ML NEB SOLUTION NEB SCH ×2 (16:03→20:16)
[2021-12-25 16:17] LABS: BACTERIA,URINE None Seen /HPF (None Seen); RBC,URINE None Seen /HPF (0-2); SQUAMOUS EPITHELIAL CELL,UR None Seen /LPF (None Seen); WBC,URINE None Seen /HPF (0-5)
[2021-12-25] MEDS ORDERED: WARFARIN SODIUM 2 MG TABLET PO ONE (17:00)
[2021-12-25 19:19] VITALS: BP 108/69
[2021-12-25] MEDS: INSULIN GLARGINE,HUM.REC.ANLOG 100 UNITS/ML SQ SCH (20:49)
[2021-12-25] MEDS: CefTRIAXone 1 GM/DEXTROSE 50 ML IV SCH (23:40)
[2021-12-25 23:56] LABS: GLUCOMETER DEV NAME(LOC) 5N.1C; GLUCOSE,POINT OF CARE 211 MG/DL (70-110)
[2021-12-26 00:08] VITALS: BP 114/65
[2021-12-26] MEDS: ALBUTEROL SULFATE 2.5 MG/0.5 ML NEB SOLUTION NEB SCH ×4 (02:57→14:00)
[2021-12-26 04:48] VITALS: BP 113/70
[2021-12-26 06:47] LABS: GLUCOMETER DEV NAME(LOC) 5N.1C; GLUCOSE,POINT OF CARE 151 MG/DL (70-110)
[2021-12-26 06:59] VITALS: BP 127/82
[2021-12-26 07:17] LABS: GLUCOMETER DEV NAME(LOC) 5N.3; GLUCOSE,POINT OF CARE 149 MG/DL (70-110)
[2021-12-26 07:33] LABS: BASOPHILS % (AUTO) 0.3 % (0.0-2.0); EOSINOPHILS % (AUTO) 1.4 % (1.0-6.0); HEMATOCRIT 33.9 % (41-53); HEMOGLOBIN 11.6 g/dL (13.5-17.5); LYMPHOCYTES # (AUTO) 0.5 K/uL (1.0-4.8); LYMPHOCYTES % (AUTO) 5.4 % (22.0-44.0); MEAN CORPUSCULAR HEMOGLOBIN 31.2 pg (26.0-34.0); MEAN CORPUSCULAR HGB CONC 34.1 G/dL (31.0-37.0); MEAN CORPUSCULAR VOLUME 92 fL (80-100); MONOCYTES # (AUTO) 0.5 K/uL (0.1-1.0); MONOCYTES % (AUTO) 5.8 % (2.0-9.0); NEUTROPHILS # (AUTO) 8.1 K/uL (1.8-7.7); PLATELET COUNT (AUTO) 171 K/uL (150-450); RED BLOOD CELL COUNT(AUTO) 3.71 MIL/uL (4.50-5.90); RED CELL DISTRIBUTION WIDTH 14.2 % (11.5-14.5)
[2021-12-26 07:39] LABS: INR 2.5 (0.9-1.1); PROTHROMBIN TIME 24.7 SEC (9.4-11.6)
[2021-12-26 07:46] LABS: ALANINE AMINOTRANSFERASE 38 U/L (12-78); ALBUMIN 1.6 g/dL (3.4-5.0); ALKALINE PHOSPHATASE 172 U/L (46-116); ANION GAP 6 mmol/L (8-16); ASPARTATE AMINOTRANSFERASE 40 U/L (15-37); BILIRUBIN,TOTAL 0.3 mg/dL (0.1-1.0); CALCIUM, TOTAL 8.3 mg/dL (8.8-10.5); CARBON DIOXIDE 33 mmol/L (22-29); CHLORIDE 94 mmol/L (98-107); CREATININE 0.46 mg/dL (0.60-1.30); GLUCOSE,RANDOM 156 mg/dL (70-110); SODIUM SERUM 133 mmol/L (136-145); TOTAL PROTEIN, SERUM 7.2 g/dL (6.4-8.2); UREA NITROGEN, BLOOD 12 mg/dL (7-18)
[2021-12-26 07:49] LABS: GLOMERULAR FILTR. RATE CALC > 60 mL/min (>60)
[2021-12-26 07:55] LABS: NEUTROPHILS % (AUTO) 87.1 % (40.0-70.0)
[2021-12-26] MEDS: MetFORMIN HCL 500 MG TABLET PO SCH ×2 (08:47→18:36)
[2021-12-26] MEDS: AZITHROMYCIN 500 MG/NS 250 ML IV SCH (08:47)
[2021-12-26] MEDS: OXYGEN THERAPY IH SCH ×2 (08:49→09:05)
[2021-12-26 11:41] LABS: GLUCOMETER DEV NAME(LOC) 5S.1B; GLUCOSE,POINT OF CARE 242 MG/DL (70-110)
[2021-12-26 11:54] VITALS: BP 129/75
[2021-12-26] MEDS: INSULIN LISPRO 100 UNITS/ML SQ PRN ×3 (12:10→20:58)
[2021-12-26] MEDS: IPRATROPIUM BROMIDE 0.5 MG/2.5 ML NEB SOLUTION NEB PRN ×2 (13:44→14:57)
[2021-12-26] MEDS ORDERED: LEVALBUTEROL HCL 1.25 MG/0.5 ML NEB SOLUTION NEB SCH (14:00)
[2021-12-26] MEDS ORDERED: LEVALBUTEROL HCL 1.25 MG/0.5 ML NEB SOLUTION NEB PRN ×2 (14:45→18:45)
[2021-12-26 14:53] VITALS: BP 131/72
[2021-12-26] MEDS ORDERED: LEVALBUTEROL HCL 0.63 MG/3 ML NEB SOLUTION NEB ONE (15:15)
[2021-12-26] MEDS ORDERED: WARFARIN SODIUM 2 MG TABLET PO ONE (17:00)
[2021-12-26 18:06] LABS: GLUCOMETER DEV NAME(LOC) 5S.1B; GLUCOSE,POINT OF CARE 213 MG/DL (70-110)
[2021-12-26] MEDS: LEVALBUTEROL HCL 1.25 MG/0.5 ML NEB SOLUTION NEB SCH (20:00)
[2021-12-26 20:45] VITALS: BP 120/73
[2021-12-26 20:51] LABS: GLUCOMETER DEV NAME(LOC) 5S.1B; GLUCOSE,POINT OF CARE 243 MG/DL (70-110)
[2021-12-26] MEDS: INSULIN GLARGINE,HUM.REC.ANLOG 100 UNITS/ML SQ SCH (20:58)
[2021-12-26] MEDS: CefTRIAXone 1 GM/DEXTROSE 50 ML IV SCH (23:10)
[2021-12-26] MEDS: ACETAMINOPHEN 325 MG TABLET PO PRN (23:57)
[2021-12-27] VITALS (7 sets, daily range): BP systolic 96–126; BP diastolic 65–80
[2021-12-27] MEDS: LEVALBUTEROL HCL 1.25 MG/0.5 ML NEB SOLUTION NEB SCH ×3 (02:00→13:34)
[2021-12-27 06:36] LABS: GLUCOMETER DEV NAME(LOC) 5N.3; GLUCOSE,POINT OF CARE 121 MG/DL (70-110)
[2021-12-27] MEDS: INSULIN LISPRO 100 UNITS/ML SQ PRN ×3 (06:43→20:59)
[2021-12-27 07:23] LABS: BASOPHILS % (AUTO) 0.5 % (0.0-2.0); EOSINOPHILS % (AUTO) 1.9 % (1.0-6.0); HEMATOCRIT 37.5 % (41-53); LYMPHOCYTES # (AUTO) 0.8 K/uL (1.0-4.8); LYMPHOCYTES % (AUTO) 9.2 % (22.0-44.0); MEAN CORPUSCULAR HEMOGLOBIN 32.1 pg (26.0-34.0); MEAN CORPUSCULAR HGB CONC 34.7 G/dL (31.0-37.0); MEAN CORPUSCULAR VOLUME 92 fL (80-100); MONOCYTES # (AUTO) 0.5 K/uL (0.1-1.0); MONOCYTES % (AUTO) 6.5 % (2.0-9.0); NEUTROPHILS # (AUTO) 6.7 K/uL (1.8-7.7); NEUTROPHILS % (AUTO) 81.9 % (40.0-70.0); PLATELET COUNT (AUTO) 170 K/uL (150-450); RED BLOOD CELL COUNT(AUTO) 4.06 MIL/uL (4.50-5.90); RED CELL DISTRIBUTION WIDTH 14.1 % (11.5-14.5)
[2021-12-27 07:49] LABS: INR 2.4 (0.9-1.1); PROTHROMBIN TIME 24.1 SEC (9.4-11.6)
[2021-12-27 07:51] LABS: ANION GAP 6 mmol/L (8-16); CARBON DIOXIDE 33 mmol/L (22-29); CHLORIDE 97 mmol/L (98-107); CREATININE 0.53 mg/dL (0.60-1.30); GLUCOSE,RANDOM 83 mg/dL (70-110); POTASSIUM 4.3 mmol/L (3.5-5.1); SODIUM SERUM 136 mmol/L (136-145); UREA NITROGEN, BLOOD 15 mg/dL (7-18)
[2021-12-27 07:52] LABS: ALANINE AMINOTRANSFERASE 46 U/L (12-78); ALBUMIN 1.7 g/dL (3.4-5.0); ALKALINE PHOSPHATASE 186 U/L (46-116); ASPARTATE AMINOTRANSFERASE 50 U/L (15-37); BILIRUBIN,TOTAL 0.3 mg/dL (0.1-1.0); CALCIUM, TOTAL 8.5 mg/dL (8.8-10.5); GLOMERULAR FILTR. RATE CALC > 60 mL/min (>60); TOTAL PROTEIN, SERUM 7.6 g/dL (6.4-8.2)
[2021-12-27] MEDS: OXYGEN THERAPY IH SCH ×3 (08:00→21:00)
[2021-12-27] MEDS: MetFORMIN HCL 500 MG TABLET PO SCH ×2 (08:36→18:26)
[2021-12-27] MEDS: IPRATROPIUM BROMIDE 0.5 MG/2.5 ML NEB SOLUTION NEB PRN ×3 (08:49→19:26)
[2021-12-27 12:56] LABS: GLUCOMETER DEV NAME(LOC) 5N.1C; GLUCOSE,POINT OF CARE 195 MG/DL (70-110)
[2021-12-27] MEDS ORDERED: ALBU8HFA IH ×2 (15:36→15:47)
[2021-12-27] MEDS ORDERED: CIPR500S4 PO (15:39)
[2021-12-27] MEDS ORDERED: WARF2TAB30 PO ×2 (15:40→15:49)
[2021-12-27] MEDS ORDERED: CIPR250S4 PO (15:40)
[2021-12-27] MEDS ORDERED: CIPR750T17 PO ×2 (15:42→15:48)
[2021-12-27] MEDS ORDERED: METF-1211 PO (15:50)
[2021-12-27] MEDS: ACETAMINOPHEN 325 MG TABLET PO PRN (16:09)
[2021-12-27] MEDS ORDERED: WARFARIN SODIUM 2 MG TABLET PO ONE (17:00)
[2021-12-27 18:26] LABS: GLUCOMETER DEV NAME(LOC) 5N.1C; GLUCOSE,POINT OF CARE 215 MG/DL (70-110)
[2021-12-27] MEDS: INSULIN GLARGINE,HUM.REC.ANLOG 100 UNITS/ML SQ SCH (20:59)
[2021-12-27 21:06] LABS: GLUCOMETER DEV NAME(LOC) 5N.1C; GLUCOSE,POINT OF CARE 243 MG/DL (70-110)
[2021-12-27] MEDS: DOXYCYCLINE HYCLATE 100 MG TABLET PO SCH (21:12)
[2021-12-27] MEDS: CefTRIAXone 1 GM/DEXTROSE 50 ML IV SCH (23:41)
[2021-12-28 01:33] LABS: APPEARANCE,URINE CLEAR (CLEAR); BILIRUBIN,URINE NEGATIVE (NEGATIVE); GLUCOSE, URINE (UA) 250 mg/dL (NEGATIVE); KETONES,URINE NEGATIVE (NEGATIVE); LEUKOCYTE ESTERASE ,URINE NEGATIVE (NEGATIVE); NITRATE,URINE NEGATIVE (NEGATIVE); OCCULT BLOOD,URINE TRACE (NEGATIVE); PH,URINE 6.5 (5.0-8.0); PROTEIN,URINE TRACE (NEGATIVE); UROBILINOGEN,URINE 0.2 mg/dL (<=1.0)
[2021-12-28 01:41] LABS: BACTERIA,URINE Rare /HPF (None Seen); WBC,URINE 0-2 /HPF (0-5)
[2021-12-28] MEDS: LEVALBUTEROL HCL 1.25 MG/0.5 ML NEB SOLUTION NEB SCH ×5 (02:38→20:13)
[2021-12-28] MEDS: IPRATROPIUM BROMIDE 0.5 MG/2.5 ML NEB SOLUTION NEB PRN ×4 (02:38→20:13)
[2021-12-28 03:37] VITALS: BP 125/74
[2021-12-28] MEDS: INSULIN LISPRO 100 UNITS/ML SQ PRN ×2 (06:38→21:08)
[2021-12-28 06:51] LABS: GLUCOMETER DEV NAME(LOC) 5N.3; GLUCOSE,POINT OF CARE 226 MG/DL (70-110)
[2021-12-28 07:56] LABS: INR 3.2 (0.9-1.1)
[2021-12-28] MEDS ORDERED: IOHEXOL 350 MG/ML 100 ML VIAL ONE (08:14)
[2021-12-28] MEDS ORDERED: SODIUM CHLORIDE 0.9% 100 ML ONE (08:14)
[2021-12-28 08:36] LABS: GLUCOMETER DEV NAME(LOC) 5N.3; GLUCOSE,POINT OF CARE 193 MG/DL (70-110)
[2021-12-28 09:16] LABS: ABG CARBOXYHEMOGLOBIN 0.5 % (0.0-1.5); ABG METHEMOGLOBIN 0.3 % (0.0-1.5); ABG OXYGEN CONTENT 16.6 mL/dL (15.0-23.0); ABG OXYGEN SATURATION 98.1 % (95.0-98.0); ABG OXYHEMOGLOBIN 97.3 % (94.0-100.0); ABG PCO2 47 mmHg (35-45); PO2, ARTERIAL BG 113.6 mmHg (79.0-87.0); SOURCE, BLOOD GAS ARTERIAL; TEMPERATURE, FAHRENHEIT, BG 98.6 FAHREN (96.0-98.6)
[2021-12-28 09:18] LABS: O2 DEVICE,BLOOD GAS NON REBREATHER (ROOM AIR); SITE, BLOOD GAS RT RADIAL
[2021-12-28 11:48] VITALS: BP 120/75
[2021-12-28] MEDS ORDERED: DIATRIZOATE MEGLU/SOD 660/100 MG/ML 120 ML BOTTLE ONE ×2 (14:48)
[2021-12-28 16:16] LABS: GLUCOMETER DEV NAME(LOC) 5N.1C; GLUCOSE,POINT OF CARE 192 MG/DL (70-110)
[2021-12-28] MEDS ORDERED: WARFARIN SODIUM 2 MG TABLET PO ONE (17:00)
[2021-12-28 17:12] LABS: GLUCOMETER DEV NAME(LOC) 5N.3; GLUCOSE,POINT OF CARE 175 MG/DL (70-110)
[2021-12-28] MEDS ORDERED: SODIUM CHLORIDE 0.45% 1,000 ML IV ONE (18:45)
[2021-12-28 19:17] VITALS: BP 133/82
[2021-12-28] MEDS: CefTRIAXone 1 GM/DEXTROSE 50 ML IV SCH (21:05)
[2021-12-28] MEDS: INSULIN GLARGINE,HUM.REC.ANLOG 100 UNITS/ML SQ SCH (21:07)
[2021-12-28] MEDS: DOXYCYCLINE HYCLATE 100 MG TABLET PO SCH (21:18)
[2021-12-28 23:46] VITALS: BP 118/68
[2021-12-29] MEDS: IPRATROPIUM BROMIDE 0.5 MG/2.5 ML NEB SOLUTION NEB PRN ×4 (01:32→19:22)
[2021-12-29] MEDS: LEVALBUTEROL HCL 1.25 MG/0.5 ML NEB SOLUTION NEB SCH ×4 (01:32→19:22)
[2021-12-29 04:34] VITALS: BP 111/71
[2021-12-29 05:46] LABS: GLUCOMETER DEV NAME(LOC) 5N.1C; GLUCOSE,POINT OF CARE 125 MG/DL (70-110)
[2021-12-29 05:46] LABS: GLUCOMETER DEV NAME(LOC) 5N.1C; GLUCOSE,POINT OF CARE 175 MG/DL (70-110)
[2021-12-29 07:46] LABS: PROTHROMBIN TIME 38.8 SEC (9.4-11.6)
[2021-12-29 08:00] LABS: INR 4.1 (0.9-1.1)
[2021-12-29] MEDS: MetFORMIN HCL 500 MG TABLET PO SCH ×2 (08:00→18:00)
[2021-12-29 08:11] VITALS: BP 128/79
[2021-12-29 11:30] VITALS: BP 129/70
[2021-12-29 15:05] VITALS: BP 120/68
[2021-12-29 17:41] LABS: GLUCOMETER DEV NAME(LOC) 5N.1C; GLUCOSE,POINT OF CARE 216 MG/DL (70-110)
[2021-12-29 17:41] LABS: GLUCOMETER DEV NAME(LOC) 5N.1C; GLUCOSE,POINT OF CARE 115 MG/DL (70-110)
[2021-12-29] MEDS: INSULIN LISPRO 100 UNITS/ML SQ PRN ×2 (18:28→20:35)
[2021-12-29 20:19] VITALS: BP 109/68
[2021-12-29] MEDS: DOXYCYCLINE HYCLATE 100 MG TABLET PO SCH ×2 (20:33→21:00)
[2021-12-29] MEDS: INSULIN GLARGINE,HUM.REC.ANLOG 100 UNITS/ML SQ SCH (20:35)
[2021-12-29] MEDS: CefTRIAXone 1 GM/DEXTROSE 50 ML IV SCH (23:33)
[2021-12-30] VITALS (7 sets, daily range): BP systolic 100–141; BP diastolic 66–94
[2021-12-30] MEDS: LEVALBUTEROL HCL 1.25 MG/0.5 ML NEB SOLUTION NEB SCH ×4 (01:05→20:00)
[2021-12-30] MEDS: IPRATROPIUM BROMIDE 0.5 MG/2.5 ML NEB SOLUTION NEB PRN ×3 (01:05→20:10)
[2021-12-30] MEDS ORDERED: SODIUM CHLORIDE 0.9% 100 ML ONE (02:21)
[2021-12-30] MEDS: INSULIN LISPRO 100 UNITS/ML SQ PRN ×4 (06:34→20:27)
[2021-12-30 06:52] LABS: BASOPHILS % (AUTO) 0.5 % (0.0-2.0); EOSINOPHILS % (AUTO) 2.9 % (1.0-6.0); HEMATOCRIT 31.5 % (41-53); LYMPHOCYTES # (AUTO) 0.5 K/uL (1.0-4.8); LYMPHOCYTES % (AUTO) 7.4 % (22.0-44.0); MEAN CORPUSCULAR HEMOGLOBIN 32.9 pg (26.0-34.0); MEAN CORPUSCULAR VOLUME 94 fL (80-100); MONOCYTES # (AUTO) 0.4 K/uL (0.1-1.0); MONOCYTES % (AUTO) 6.1 % (2.0-9.0); NEUTROPHILS # (AUTO) 5.4 K/uL (1.8-7.7); NEUTROPHILS % (AUTO) 83.1 % (40.0-70.0); PLATELET COUNT (AUTO) 148 K/uL (150-450); RED BLOOD CELL COUNT(AUTO) 3.35 MIL/uL (4.50-5.90); RED CELL DISTRIBUTION WIDTH 14.4 % (11.5-14.5)
[2021-12-30 07:05] LABS: PROTHROMBIN TIME 40.5 SEC (9.4-11.6)
[2021-12-30 07:08] LABS: ANION GAP 3 mmol/L (8-16); CARBON DIOXIDE 35 mmol/L (22-29); CHLORIDE 98 mmol/L (98-107); CREATININE 0.46 mg/dL (0.60-1.30); GLUCOSE,RANDOM 200 mg/dL (70-110); POTASSIUM 4.1 mmol/L (3.5-5.1); SODIUM SERUM 136 mmol/L (136-145); UREA NITROGEN, BLOOD 13 mg/dL (7-18)
[2021-12-30 07:09] LABS: CALCIUM, TOTAL 8.2 mg/dL (8.8-10.5); GLOMERULAR FILTR. RATE CALC > 60 mL/min (>60)
[2021-12-30 07:28] LABS: INR 4.3 (0.9-1.1)
[2021-12-30] MEDS: MetFORMIN HCL 500 MG TABLET PO SCH ×4 (08:00→18:48)
[2021-12-30 09:21] LABS: GLUCOMETER DEV NAME(LOC) 5N.3; GLUCOSE,POINT OF CARE 185 MG/DL (70-110)
[2021-12-30] MEDS: DOXYCYCLINE HYCLATE 100 MG TABLET PO SCH ×2 (11:00→20:28)
[2021-12-30 16:41] LABS: GLUCOMETER DEV NAME(LOC) 5N.1C; GLUCOSE,POINT OF CARE 249 MG/DL (70-110)
[2021-12-30 16:42] LABS: GLUCOMETER DEV NAME(LOC) 5N.1C; GLUCOSE,POINT OF CARE 300 MG/DL (70-110)
[2021-12-30 17:36] LABS: GLUCOMETER DEV NAME(LOC) 5N.1C; GLUCOSE,POINT OF CARE 286 MG/DL (70-110)
[2021-12-30] MEDS: ACETAMINOPHEN 325 MG TABLET PO PRN (20:23)
[2021-12-30] MEDS: INSULIN GLARGINE,HUM.REC.ANLOG 100 UNITS/ML SQ SCH (20:27)
[2021-12-30] MEDS ORDERED: SODIUM CHLORIDE 0.9% 1,000 ML IV ONE (21:45)
[2021-12-30] MEDS: CefTRIAXone 1 GM/DEXTROSE 50 ML IV SCH (22:01)
[2021-12-31] VITALS (7 sets, daily range): BP systolic 108–146; BP diastolic 66–80
[2021-12-31] MEDS: LEVALBUTEROL HCL 1.25 MG/0.5 ML NEB SOLUTION NEB SCH ×4 (01:47→20:00)
[2021-12-31] MEDS: IPRATROPIUM BROMIDE 0.5 MG/2.5 ML NEB SOLUTION NEB PRN (01:52)
[2021-12-31 05:16] LABS: GLUCOMETER DEV NAME(LOC) 5N.1C; GLUCOSE,POINT OF CARE 216 MG/DL (70-110)
[2021-12-31] MEDS: INSULIN LISPRO 100 UNITS/ML SQ PRN ×3 (05:52→17:24)
[2021-12-31 06:18] LABS: APPEARANCE,URINE CLEAR (CLEAR); BILIRUBIN,URINE NEGATIVE (NEGATIVE); GLUCOSE, URINE (UA) >=1000 mg/dL (NEGATIVE); KETONES,URINE NEGATIVE (NEGATIVE); LEUKOCYTE ESTERASE ,URINE NEGATIVE (NEGATIVE); NITRATE,URINE NEGATIVE (NEGATIVE); OCCULT BLOOD,URINE NEGATIVE (NEGATIVE); PROTEIN,URINE TRACE (NEGATIVE); UROBILINOGEN,URINE 0.2 mg/dL (<=1.0)
[2021-12-31 06:19] LABS: BACTERIA,URINE Rare /HPF (None Seen); RBC,URINE 0-2 /HPF (0-2); WBC,URINE 0-2 /HPF (0-5)
[2021-12-31 08:55] LABS: BASOPHILS % (AUTO) 0.5 % (0.0-2.0); EOSINOPHILS % (AUTO) 2.4 % (1.0-6.0); HEMATOCRIT 32.5 % (41-53); HEMOGLOBIN 11.1 g/dL (13.5-17.5); LYMPHOCYTES # (AUTO) 0.5 K/uL (1.0-4.8); LYMPHOCYTES % (AUTO) 8.7 % (22.0-44.0); MEAN CORPUSCULAR HEMOGLOBIN 31.7 pg (26.0-34.0); MEAN CORPUSCULAR HGB CONC 34.2 G/dL (31.0-37.0); MEAN CORPUSCULAR VOLUME 93 fL (80-100); MONOCYTES # (AUTO) 0.4 K/uL (0.1-1.0); MONOCYTES % (AUTO) 6.5 % (2.0-9.0); NEUTROPHILS # (AUTO) 5.2 K/uL (1.8-7.7); NEUTROPHILS % (AUTO) 81.9 % (40.0-70.0); PLATELET COUNT (AUTO) 141 K/uL (150-450); RED CELL DISTRIBUTION WIDTH 14.6 % (11.5-14.5)
[2021-12-31 09:02] LABS: ANION GAP 4 mmol/L (8-16); CALCIUM, TOTAL 8.1 mg/dL (8.8-10.5); CARBON DIOXIDE 34 mmol/L (22-29); CHLORIDE 101 mmol/L (98-107); CREATININE 0.37 mg/dL (0.60-1.30); GLUCOSE,RANDOM 84 mg/dL (70-110); POTASSIUM 3.8 mmol/L (3.5-5.1); SODIUM SERUM 139 mmol/L (136-145); UREA NITROGEN, BLOOD 9 mg/dL (7-18)
[2021-12-31 09:04] LABS: GLOMERULAR FILTR. RATE CALC > 60 mL/min (>60); INR 1.8 (0.9-1.1); PROTHROMBIN TIME 18.3 SEC (9.4-11.6)
[2021-12-31] MEDS: DOXYCYCLINE HYCLATE 100 MG TABLET PO SCH ×2 (10:10→21:24)
[2021-12-31] MEDS: MetFORMIN HCL 500 MG TABLET PO SCH ×2 (10:10→17:14)
[2021-12-31 12:01] LABS: GLUCOMETER DEV NAME(LOC) 5N.1C; GLUCOSE,POINT OF CARE 149 MG/DL (70-110)
[2021-12-31 12:26] LABS: GLUCOMETER DEV NAME(LOC) 5N.3; GLUCOSE,POINT OF CARE 227 MG/DL (70-110)
[2021-12-31] MEDS ORDERED: WARFARIN SODIUM 3 MG TABLET PO SCH (17:00)
[2021-12-31 17:41] LABS: GLUCOMETER DEV NAME(LOC) 5N.3; GLUCOSE,POINT OF CARE 237 MG/DL (70-110)
[2021-12-31] MEDS ORDERED: SODIUM CHLORIDE 0.45% 1,000 ML IV ONE (18:00)
[2021-12-31] MEDS ORDERED: 0.9% SODIUM CHLORIDE 5 ML NEB SOLUTION NEB ONE (19:53)
[2021-12-31 20:26] LABS: GLUCOMETER DEV NAME(LOC) 5S.2B; GLUCOSE,POINT OF CARE 123 MG/DL (70-110)
[2021-12-31] MEDS: INSULIN GLARGINE,HUM.REC.ANLOG 100 UNITS/ML SQ SCH (21:00)
[2021-12-31] MEDS: CefTRIAXone 1 GM/DEXTROSE 50 ML IV SCH (23:15)
[2021-12-31] MEDS: ACETAMINOPHEN 325 MG TABLET PO PRN (23:34)
[2022-01-01] MEDS: LEVALBUTEROL HCL 1.25 MG/0.5 ML NEB SOLUTION NEB SCH ×4 (02:00→19:45)
[2022-01-01 05:00] VITALS: BP 113/68
[2022-01-01 07:10] LABS: BASOPHILS % (AUTO) 0.6 % (0.0-2.0); HEMATOCRIT 34.8 % (41-53); HEMOGLOBIN 11.8 g/dL (13.5-17.5); LYMPHOCYTES # (AUTO) 0.8 K/uL (1.0-4.8); LYMPHOCYTES % (AUTO) 9.5 % (22.0-44.0); MEAN CORPUSCULAR HEMOGLOBIN 31.1 pg (26.0-34.0); MEAN CORPUSCULAR VOLUME 91 fL (80-100); MONOCYTES # (AUTO) 0.4 K/uL (0.1-1.0); MONOCYTES % (AUTO) 5.3 % (2.0-9.0); NEUTROPHILS # (AUTO) 6.7 K/uL (1.8-7.7); NEUTROPHILS % (AUTO) 82.6 % (40.0-70.0); PLATELET COUNT (AUTO) 156 K/uL (150-450); RED BLOOD CELL COUNT(AUTO) 3.81 MIL/uL (4.50-5.90); RED CELL DISTRIBUTION WIDTH 14.5 % (11.5-14.5)
[2022-01-01 07:31] LABS: INR 1.5 (0.9-1.1); PROTHROMBIN TIME 15.1 SEC (9.4-11.6)
[2022-01-01 07:32] LABS: ANION GAP 3 mmol/L (8-16); CALCIUM, TOTAL 8.1 mg/dL (8.8-10.5); CARBON DIOXIDE 34 mmol/L (22-29); CHLORIDE 96 mmol/L (98-107); CREATININE 0.43 mg/dL (0.60-1.30); GLUCOSE,RANDOM 144 mg/dL (70-110); POTASSIUM 4.3 mmol/L (3.5-5.1); SODIUM SERUM 133 mmol/L (136-145); UREA NITROGEN, BLOOD 11 mg/dL (7-18)
[2022-01-01 07:42] LABS: GLOMERULAR FILTR. RATE CALC > 60 mL/min (>60)
[2022-01-01 07:57] VITALS: BP 129/78
[2022-01-01] MEDS: DOXYCYCLINE HYCLATE 100 MG TABLET PO SCH ×2 (08:44→21:28)
[2022-01-01] MEDS: MetFORMIN HCL 500 MG TABLET PO SCH ×2 (08:44→17:39)
[2022-01-01 09:01] LABS: GLUCOMETER DEV NAME(LOC) 5S.2B; GLUCOSE,POINT OF CARE 157 MG/DL (70-110)
[2022-01-01 11:51] LABS: GLUCOMETER DEV NAME(LOC) 5N.3; GLUCOSE,POINT OF CARE 144 MG/DL (70-110)
[2022-01-01 12:15] VITALS: BP 118/74
[2022-01-01 16:02] VITALS: BP 115/71
[2022-01-01] MEDS ORDERED: WARFARIN SODIUM 2 MG TABLET PO SCH (17:00)
[2022-01-01 17:47] LABS: GLUCOMETER DEV NAME(LOC) 5N.3; GLUCOSE,POINT OF CARE 142 MG/DL (70-110)
[2022-01-01 19:10] VITALS: BP 118/70
[2022-01-01] MEDS ORDERED: 0.9% SODIUM CHLORIDE 5 ML NEB SOLUTION NEB ONE (19:31)
[2022-01-01] MEDS: INSULIN GLARGINE,HUM.REC.ANLOG 100 UNITS/ML SQ SCH (21:00)
[2022-01-01] MEDS ORDERED: SODIUM CHLORIDE 0.9% 250 ML IV ONE (22:06)
[2022-01-01] MEDS: CefTRIAXone 1 GM/DEXTROSE 50 ML IV SCH (22:09)
[2022-01-01 22:26] LABS: GLUCOMETER DEV NAME(LOC) 5S.2B; GLUCOSE,POINT OF CARE 144 MG/DL (70-110)
[2022-01-01 23:40] VITALS: BP 114/76
[2022-01-02] MEDS ORDERED: 0.9% SODIUM CHLORIDE 5 ML NEB SOLUTION NEB ONE (01:48)
[2022-01-02] MEDS: LEVALBUTEROL HCL 1.25 MG/0.5 ML NEB SOLUTION NEB SCH ×4 (02:02→20:05)
[2022-01-02 04:00] VITALS: BP 115/74
[2022-01-02 06:57] LABS: GLUCOMETER DEV NAME(LOC) 5S.2B; GLUCOSE,POINT OF CARE 143 MG/DL (70-110)
[2022-01-02 08:01] VITALS: BP 116/72
[2022-01-02] MEDS: DOXYCYCLINE HYCLATE 100 MG TABLET PO SCH ×2 (08:34→21:45)
[2022-01-02] MEDS: MetFORMIN HCL 500 MG TABLET PO SCH ×2 (08:34→17:23)
[2022-01-02 10:33] LABS: PROTHROMBIN TIME 20.5 SEC (9.4-11.6)
[2022-01-02] MEDS: DEXTROSE 5%-0.9% SODIUM CHL 1,000 ML IV SCH (11:09)
[2022-01-02 11:46] VITALS: BP 121/64
[2022-01-02] MEDS: INSULIN LISPRO 100 UNITS/ML SQ PRN ×2 (12:04→21:50)
[2022-01-02 15:31] VITALS: BP 119/73
[2022-01-02] MEDS ORDERED: WARFARIN SODIUM 5 MG TABLET PO ONE (17:00)
[2022-01-02 17:51] LABS: GLUCOMETER DEV NAME(LOC) 5N.3; GLUCOSE,POINT OF CARE 146 MG/DL (70-110)
[2022-01-02 18:21] LABS: GLUCOMETER DEV NAME(LOC) 5S.2B; GLUCOSE,POINT OF CARE 228 MG/DL (70-110)
[2022-01-02 18:21] LABS: GLUCOMETER DEV NAME(LOC) 5S.2B; GLUCOSE,POINT OF CARE 162 MG/DL (70-110)
[2022-01-02 20:30] VITALS: BP 132/79
[2022-01-02 21:01] LABS: GLUCOMETER DEV NAME(LOC) 5S.2B; GLUCOSE,POINT OF CARE 163 MG/DL (70-110)
[2022-01-02] MEDS: INSULIN GLARGINE,HUM.REC.ANLOG 100 UNITS/ML SQ SCH (21:48)
[2022-01-02] MEDS: CefTRIAXone 1 GM/DEXTROSE 50 ML IV SCH (21:53)
[2022-01-03 00:31] VITALS: BP 122/77
[2022-01-03] MEDS: LEVALBUTEROL HCL 1.25 MG/0.5 ML NEB SOLUTION NEB SCH ×4 (03:57→19:12)
[2022-01-03 04:33] VITALS: BP 120/70
[2022-01-03] MEDS: INSULIN LISPRO 100 UNITS/ML SQ PRN ×2 (06:20→14:17)
[2022-01-03 06:46] LABS: GLUCOMETER DEV NAME(LOC) 5N.3; GLUCOSE,POINT OF CARE 153 MG/DL (70-110)
[2022-01-03] MEDS: DEXTROSE 5%-0.9% SODIUM CHL 1,000 ML IV SCH (07:51)
[2022-01-03] MEDS: DOXYCYCLINE HYCLATE 100 MG TABLET PO SCH ×2 (08:16→20:22)
[2022-01-03] MEDS: MetFORMIN HCL 500 MG TABLET PO SCH ×2 (08:16→18:28)
[2022-01-03 08:48] LABS: INR 2.9 (0.9-1.1); PROTHROMBIN TIME 28.1 SEC (9.4-11.6)
[2022-01-03 09:14] VITALS: BP 120/70
[2022-01-03 13:32] VITALS: BP 120/70
[2022-01-03 14:21] LABS: GLUCOMETER DEV NAME(LOC) 5S.2B; GLUCOSE,POINT OF CARE 154 MG/DL (70-110)
[2022-01-03] MEDS ORDERED: WARFARIN SODIUM 1 MG TABLET PO SCH (17:00)
[2022-01-03] MEDS: IPRATROPIUM BROMIDE 0.5 MG/2.5 ML NEB SOLUTION NEB PRN (19:12)
[2022-01-03 19:48] VITALS: BP 133/76
[2022-01-03 20:01] LABS: GLUCOMETER DEV NAME(LOC) 5N.3; GLUCOSE,POINT OF CARE 137 MG/DL (70-110)
[2022-01-03] MEDS: INSULIN GLARGINE,HUM.REC.ANLOG 100 UNITS/ML SQ SCH (20:41)
[2022-01-04] MEDS: CefTRIAXone 1 GM/DEXTROSE 50 ML IV SCH ×2 (00:24→23:21)
[2022-01-04 00:33] VITALS: BP 132/65
[2022-01-04 00:56] LABS: GLUCOMETER DEV NAME(LOC) 5S.2B; GLUCOSE,POINT OF CARE 132 MG/DL (70-110)
[2022-01-04] MEDS: LEVALBUTEROL HCL 1.25 MG/0.5 ML NEB SOLUTION NEB SCH ×4 (01:25→20:02)
[2022-01-04] MEDS: IPRATROPIUM BROMIDE 0.5 MG/2.5 ML NEB SOLUTION NEB PRN ×4 (01:25→20:02)
[2022-01-04 04:20] VITALS: BP 130/79
[2022-01-04 05:52] LABS: INR 4.6 (0.9-1.1); PROTHROMBIN TIME 42.9 SEC (9.4-11.6)
[2022-01-04 06:36] LABS: GLUCOMETER DEV NAME(LOC) 5S.2B; GLUCOSE,POINT OF CARE 81 MG/DL (70-110)
[2022-01-04] MEDS: MetFORMIN HCL 500 MG TABLET PO SCH ×2 (08:33→18:00)
[2022-01-04] MEDS: DOXYCYCLINE HYCLATE 100 MG TABLET PO SCH ×2 (08:33→20:25)
[2022-01-04] MEDS: DEXTROSE 5%-0.9% SODIUM CHL 1,000 ML IV SCH (08:34)
[2022-01-04 09:26] VITALS: BP 120/70
[2022-01-04 16:04] VITALS: BP 124/82
[2022-01-04 19:45] VITALS: BP 117/78
[2022-01-04 20:11] LABS: GLUCOMETER DEV NAME(LOC) 5S.2B; GLUCOSE,POINT OF CARE 59 MG/DL (70-110)
[2022-01-04] MEDS: INSULIN GLARGINE,HUM.REC.ANLOG 100 UNITS/ML SQ SCH (20:27)
[2022-01-04] MEDS ORDERED: SODIUM CHLORIDE 0.9% 250 ML IV ONE (22:55)
[2022-01-04 23:26] LABS: GLUCOMETER DEV NAME(LOC) 5N.3; GLUCOSE,POINT OF CARE 155 MG/DL (70-110)
[2022-01-04 23:30] VITALS: BP 120/64
[2022-01-05] MEDS: LEVALBUTEROL HCL 1.25 MG/0.5 ML NEB SOLUTION NEB SCH ×4 (02:49→19:26)
[2022-01-05] MEDS: IPRATROPIUM BROMIDE 0.5 MG/2.5 ML NEB SOLUTION NEB PRN ×2 (02:50→07:23)
[2022-01-05 04:40] VITALS: BP 117/73
[2022-01-05] MEDS: INSULIN LISPRO 100 UNITS/ML SQ PRN ×2 (05:38→18:58)
[2022-01-05 06:41] LABS: GLUCOMETER DEV NAME(LOC) 5N.3; GLUCOSE,POINT OF CARE 145 MG/DL (70-110)
[2022-01-05 07:11] VITALS: BP 129/82
[2022-01-05 08:04] LABS: INR 3.6 (0.9-1.1); PROTHROMBIN TIME 34.5 SEC (9.4-11.6)
[2022-01-05] MEDS: DOXYCYCLINE HYCLATE 100 MG TABLET PO SCH ×2 (09:08→20:27)
[2022-01-05] MEDS: MetFORMIN HCL 500 MG TABLET PO SCH ×2 (09:08→18:22)
[2022-01-05 11:21] VITALS: BP 112/76
[2022-01-05 15:15] VITALS: BP 126/75
[2022-01-05 18:21] LABS: GLUCOMETER DEV NAME(LOC) 5S.1B; GLUCOSE,POINT OF CARE 188 MG/DL (70-110)
[2022-01-05 19:26] LABS: GLUCOMETER DEV NAME(LOC) 5S.2B; GLUCOSE,POINT OF CARE 220 MG/DL (70-110)
[2022-01-05 19:27] VITALS: BP 120/82
[2022-01-05] MEDS: INSULIN GLARGINE,HUM.REC.ANLOG 100 UNITS/ML SQ SCH (20:29)
[2022-01-05] MEDS: CefTRIAXone 1 GM/DEXTROSE 50 ML IV SCH (23:10)
[2022-01-05 23:38] VITALS: BP 117/77
[2022-01-06] MEDS: LEVALBUTEROL HCL 1.25 MG/0.5 ML NEB SOLUTION NEB SCH ×4 (01:27→19:32)
[2022-01-06 04:23] VITALS: BP 105/69
[2022-01-06 05:21] LABS: GLUCOMETER DEV NAME(LOC) 5S.1B; GLUCOSE,POINT OF CARE 155 MG/DL (70-110)
[2022-01-06] MEDS: INSULIN LISPRO 100 UNITS/ML SQ PRN ×3 (05:38→20:35)
[2022-01-06 06:26] LABS: GLUCOMETER DEV NAME(LOC) 5N.3; GLUCOSE,POINT OF CARE 151 MG/DL (70-110)
[2022-01-06 07:46] LABS: ANION GAP 1 mmol/L (8-16); CALCIUM, TOTAL 8.2 mg/dL (8.8-10.5); CARBON DIOXIDE 39 mmol/L (22-29); CHLORIDE 98 mmol/L (98-107); CREATININE 0.45 mg/dL (0.60-1.30); GLUCOSE,RANDOM 106 mg/dL (70-110); SODIUM SERUM 138 mmol/L (136-145); UREA NITROGEN, BLOOD 10 mg/dL (7-18)
[2022-01-06 07:47] LABS: GLOMERULAR FILTR. RATE CALC > 60 mL/min (>60)
[2022-01-06 08:36] LABS: INR 1.6 (0.9-1.1); PROTHROMBIN TIME 16.4 SEC (9.4-11.6)
[2022-01-06 08:40] VITALS: BP 134/82
[2022-01-06] MEDS: MetFORMIN HCL 500 MG TABLET PO SCH ×2 (08:40→17:17)
[2022-01-06] MEDS: DOXYCYCLINE HYCLATE 100 MG TABLET PO SCH ×2 (08:40→20:34)
[2022-01-06 11:31] LABS: GLUCOMETER DEV NAME(LOC) 5S.1B; GLUCOSE,POINT OF CARE 196 MG/DL (70-110)
[2022-01-06 11:44] VITALS: BP 125/81
[2022-01-06 16:21] VITALS: BP 137/84
[2022-01-06] MEDS ORDERED: WARFARIN SODIUM 2.5 MG TABLET PO ONE (17:00)
[2022-01-06 17:46] LABS: GLUCOMETER DEV NAME(LOC) 5S.2B; GLUCOSE,POINT OF CARE 198 MG/DL (70-110)
[2022-01-06 19:56] VITALS: BP 122/78
[2022-01-06] MEDS: INSULIN GLARGINE,HUM.REC.ANLOG 100 UNITS/ML SQ SCH (20:35)
[2022-01-06] MEDS: CefTRIAXone 1 GM/DEXTROSE 50 ML IV SCH (23:29)
[2022-01-07] VITALS: BP 116/76
[2022-01-07] MEDS: LEVALBUTEROL HCL 1.25 MG/0.5 ML NEB SOLUTION NEB SCH ×3 (01:44→19:39)
[2022-01-07 04:36] VITALS: BP 120/74
[2022-01-07 06:21] LABS: GLUCOMETER DEV NAME(LOC) 5N.3; GLUCOSE,POINT OF CARE 260 MG/DL (70-110)
[2022-01-07 06:22] LABS: GLUCOMETER DEV NAME(LOC) 5N.3; GLUCOSE,POINT OF CARE 121 MG/DL (70-110)
[2022-01-07 08:00] VITALS: BP 131/79
[2022-01-07 08:15] LABS: INR 1.2 (0.9-1.1)
[2022-01-07] MEDS: IPRATROPIUM BROMIDE 0.5 MG/2.5 ML NEB SOLUTION NEB PRN ×2 (08:17→14:10)
[2022-01-07] MEDS: MetFORMIN HCL 500 MG TABLET PO SCH ×2 (08:34→18:09)
[2022-01-07] MEDS: DOXYCYCLINE HYCLATE 100 MG TABLET PO SCH ×2 (08:34→20:35)
[2022-01-07] MEDS: INSULIN LISPRO 100 UNITS/ML SQ PRN ×2 (08:59→20:34)
[2022-01-07 12:00] VITALS: BP 104/72
[2022-01-07 12:21] LABS: GLUCOMETER DEV NAME(LOC) 5S.1B; GLUCOSE,POINT OF CARE 54 MG/DL (70-110)
[2022-01-07 12:21] LABS: GLUCOMETER DEV NAME(LOC) 5N.3; GLUCOSE,POINT OF CARE 172 MG/DL (70-110)
[2022-01-07 16:36] LABS: GLUCOMETER DEV NAME(LOC) 5S.1B; GLUCOSE,POINT OF CARE 124 MG/DL (70-110)
[2022-01-07] MEDS ORDERED: WARFARIN SODIUM 3 MG TABLET PO ONE (17:00)
[2022-01-07 17:44] LABS: INR 1.2 (0.9-1.1); PROTHROMBIN TIME 12.4 SEC (9.4-11.6)
[2022-01-07 19:57] VITALS: BP 111/68
[2022-01-07] MEDS: INSULIN GLARGINE,HUM.REC.ANLOG 100 UNITS/ML SQ SCH (20:33)
[2022-01-07 20:36] LABS: GLUCOMETER DEV NAME(LOC) 5S.1B; GLUCOSE,POINT OF CARE 236 MG/DL (70-110)
[2022-01-07] MEDS: CefTRIAXone 1 GM/DEXTROSE 50 ML IV SCH (22:57)
[2022-01-08 00:22] VITALS: BP 113/76
[2022-01-08] MEDS: LEVALBUTEROL HCL 1.25 MG/0.5 ML NEB SOLUTION NEB SCH ×4 (01:37→19:44)
[2022-01-08 03:53] VITALS: BP 105/71
[2022-01-08 06:01] LABS: GLUCOMETER DEV NAME(LOC) 5S.1B; GLUCOSE,POINT OF CARE 106 MG/DL (70-110)
[2022-01-08 06:05] LABS: INR 1.2 (0.9-1.1); PROTHROMBIN TIME 12.2 SEC (9.4-11.6)
[2022-01-08] MEDS: IPRATROPIUM BROMIDE 0.5 MG/2.5 ML NEB SOLUTION NEB PRN ×3 (08:43→19:44)
[2022-01-08] MEDS: DOXYCYCLINE HYCLATE 100 MG TABLET PO SCH ×2 (10:07→20:12)
[2022-01-08] MEDS: MetFORMIN HCL 500 MG TABLET PO SCH ×2 (10:08→17:16)
[2022-01-08 15:06] LABS: GLUCOMETER DEV NAME(LOC) 5S.1B; GLUCOSE,POINT OF CARE 194 MG/DL (70-110)
[2022-01-08] MEDS: INSULIN LISPRO 100 UNITS/ML SQ PRN ×2 (15:38→20:15)
[2022-01-08] MEDS ORDERED: WARFARIN SODIUM 3 MG TABLET PO SCH (17:00)
[2022-01-08] MEDS ORDERED: SODIUM CHLORIDE 0.9% 250 ML IV ONE (19:46)
[2022-01-08 20:02] VITALS: BP 119/77
[2022-01-08] MEDS: INSULIN GLARGINE,HUM.REC.ANLOG 100 UNITS/ML SQ SCH (20:15)
[2022-01-08 21:01] LABS: GLUCOMETER DEV NAME(LOC) 5S.1B; GLUCOSE,POINT OF CARE 166 MG/DL (70-110)
[2022-01-08] MEDS: CefTRIAXone 1 GM/DEXTROSE 50 ML IV SCH (21:43)
[2022-01-09] VITALS (7 sets, daily range): BP systolic 103–125; BP diastolic 59–84
[2022-01-09] MEDS: IPRATROPIUM BROMIDE 0.5 MG/2.5 ML NEB SOLUTION NEB PRN ×4 (02:42→19:16)
[2022-01-09] MEDS: LEVALBUTEROL HCL 1.25 MG/0.5 ML NEB SOLUTION NEB SCH ×4 (02:42→19:16)
[2022-01-09 06:07] LABS: GLUCOMETER DEV NAME(LOC) 5S.1B; GLUCOSE,POINT OF CARE 127 MG/DL (70-110)
[2022-01-09] MEDS: DOXYCYCLINE HYCLATE 100 MG TABLET PO SCH (08:23)
[2022-01-09] MEDS: MetFORMIN HCL 500 MG TABLET PO SCH ×2 (08:23→16:59)
[2022-01-09 09:12] LABS: INR 1.2 (0.9-1.1); PROTHROMBIN TIME 12.2 SEC (9.4-11.6)
[2022-01-09 11:54] LABS: GLUCOMETER DEV NAME(LOC) 5N.3; GLUCOSE,POINT OF CARE 220 MG/DL (70-110)
[2022-01-09] MEDS: INSULIN LISPRO 100 UNITS/ML SQ PRN ×3 (12:11→21:35)
[2022-01-09] MEDS: WARFARIN SODIUM 2 MG TABLET PO SCH (16:59)
[2022-01-09 21:06] LABS: GLUCOMETER DEV NAME(LOC) 5N.1C; GLUCOSE,POINT OF CARE 147 MG/DL (70-110)
[2022-01-09] MEDS: INSULIN GLARGINE,HUM.REC.ANLOG 100 UNITS/ML SQ SCH (21:33)
[2022-01-09] MEDS: CefTRIAXone 1 GM/DEXTROSE 50 ML IV SCH (23:20)
[2022-01-10 00:04] VITALS: BP 116/74
[2022-01-10] MEDS: IPRATROPIUM BROMIDE 0.5 MG/2.5 ML NEB SOLUTION NEB PRN ×3 (02:55→14:12)
[2022-01-10] MEDS: LEVALBUTEROL HCL 1.25 MG/0.5 ML NEB SOLUTION NEB SCH ×4 (02:56→20:01)
[2022-01-10 04:17] VITALS: BP 111/65
[2022-01-10 07:18] LABS: INR 1.2 (0.9-1.1); PROTHROMBIN TIME 12.5 SEC (9.4-11.6)
[2022-01-10 07:19] VITALS: BP 121/73
[2022-01-10 08:31] LABS: GLUCOMETER DEV NAME(LOC) 5N.1C; GLUCOSE,POINT OF CARE 105 MG/DL (70-110)
[2022-01-10] MEDS: MetFORMIN HCL 500 MG TABLET PO SCH ×2 (09:45→17:18)
[2022-01-10 10:31] VITALS: BP 106/71
[2022-01-10 14:42] VITALS: BP 118/76
[2022-01-10] MEDS: WARFARIN SODIUM 2 MG TABLET PO SCH (17:21)
[2022-01-10 20:16] VITALS: BP 116/78
[2022-01-10 20:31] LABS: GLUCOMETER DEV NAME(LOC) 5N.3; GLUCOSE,POINT OF CARE 171 MG/DL (70-110)
[2022-01-10 21:11] LABS: GLUCOMETER DEV NAME(LOC) 5N.3; GLUCOSE,POINT OF CARE 208 MG/DL (70-110)
[2022-01-10] MEDS: INSULIN GLARGINE,HUM.REC.ANLOG 100 UNITS/ML SQ SCH (21:52)
[2022-01-10] MEDS: CefTRIAXone 1 GM/DEXTROSE 50 ML IV SCH (21:54)
[2022-01-10] MEDS: INSULIN LISPRO 100 UNITS/ML SQ PRN (21:54)
[2022-01-11 00:05] VITALS: BP 113/75
[2022-01-11] MEDS ORDERED: 0.9% SODIUM CHLORIDE 5 ML NEB SOLUTION NEB ONE (01:59)
[2022-01-11] MEDS: LEVALBUTEROL HCL 1.25 MG/0.5 ML NEB SOLUTION NEB SCH ×3 (02:13→14:29)
[2022-01-11 04:47] VITALS: BP 112/70
[2022-01-11 05:56] LABS: GLUCOMETER DEV NAME(LOC) 5N.1C; GLUCOSE,POINT OF CARE 107 MG/DL (70-110)
[2022-01-11 07:15] VITALS: BP 110/76
[2022-01-11] MEDS: MetFORMIN HCL 500 MG TABLET PO SCH (08:47)
[2022-01-11 08:52] LABS: INR 1.2 (0.9-1.1)
[2022-01-11 10:47] VITALS: BP 151/91
[2022-01-11] MEDS ORDERED: WARFARIN SODIUM 5 MG TABLET PO ONE (17:00)
== END 2022-01-11 15:15 | disposition home health service (06) | DRG 134 ==
LOC: EMS 17:32 → 5N 12-14 00:30 → 5S 12-16 18:00
PROVIDERS: ADMIT Internal Medicine; ATTEND Internal Medicine
DX: I26.99 Other pulmonary embolism without acute cor pulmonale (principal); J96.01 Acute respiratory failure with hypoxia; E43 Unspecified severe protein-calorie malnutrition; J18.9 Pneumonia, unspecified organism; E87.1 Hypo-osmolality and hyponatremia; J44.0 Chronic obstructive pulmonary disease with (acute) lower respiratory infection; J98.2 Interstitial emphysema; I82.409 Acute embolism and thrombosis of unspecified deep veins of unspecified lower extremity; I10 Essential (primary) hypertension; E11.65 Type 2 diabetes mellitus with hyperglycemia; D64.9 Anemia, unspecified; Z20.822 Contact with and (suspected) exposure to COVID-19; R79.1 Abnormal coagulation profile; Z79.01 Long term (current) use of anticoagulants; Z68.1 Body mass index [BMI] 19.9 or less, adult; Z79.84 Long term (current) use of oral hypoglycemic drugs; Z79.899 Other long term (current) drug therapy; Z83.3 Family history of diabetes mellitus
CPT/HCPCS: 36600; 71045; 71046; 71275; 74220; 80048; 80053; 80074; 81001; 82805; 82962; 83036; 83735; 83880; 83930; 83935; 84100; 84145; 84300; 84443; 84484; 85025; 85379; 85610; 85730; 87040; 87081; 87389; 93005; 93306; 93970; 94640; 99285; J0456; J0696; J1100; J1650; J1815; J3490; J7030; J7042; J7050; J7060; Q9967; 36415-L1; 36415-TC; J7613; U0003; Z7610

== ENCOUNTER 2022-01-12 14:58 | Emergency (ER) | payer MEDICAID ==
[~2022-01-12] VITALS: Ht 165.1 cm; Wt 54.5 kg
[~2022-01-12 14:58] MED LIST changes: +ALBU8HFA IH; +CIPR750T17 PO; +WARF2TAB30 PO
[2022-01-12 15:47] LABS: BASOPHILS % (AUTO) 0.3 % (0.0-2.0); EOSINOPHILS % (AUTO) 1.4 % (1.0-6.0); HEMATOCRIT 34.8 % (41-53); HEMOGLOBIN 11.3 g/dL (13.5-17.5); LYMPHOCYTES # (AUTO) 0.5 K/uL (1.0-4.8); LYMPHOCYTES % (AUTO) 6.8 % (22.0-44.0); MEAN CORPUSCULAR HEMOGLOBIN 29.8 pg (26.0-34.0); MEAN CORPUSCULAR HGB CONC 32.5 G/dL (31.0-37.0); MEAN CORPUSCULAR VOLUME 92 fL (80-100); MONOCYTES # (AUTO) 0.5 K/uL (0.1-1.0); NEUTROPHILS # (AUTO) 6.9 K/uL (1.8-7.7); NEUTROPHILS % (AUTO) 85.5 % (40.0-70.0); PLATELET COUNT (AUTO) 333 K/uL (150-450); RED CELL DISTRIBUTION WIDTH 15.6 % (11.5-14.5)
[2022-01-12 15:56] LABS: ANION GAP 0 mmol/L (8-16); CALCIUM, TOTAL 8.1 mg/dL (8.8-10.5); CARBON DIOXIDE 38 mmol/L (22-29); CHLORIDE 97 mmol/L (98-107); CREATININE 0.45 mg/dL (0.60-1.30); GLUCOSE,RANDOM 232 mg/dL (70-110); POTASSIUM 4.1 mmol/L (3.5-5.1); SODIUM SERUM 135 mmol/L (136-145); UREA NITROGEN, BLOOD 13 mg/dL (7-18)
[2022-01-12 15:56] LABS: COVID AG,FIA SOURCE NASOPHARYNGEAL
[2022-01-12 15:59] LABS: GLOMERULAR FILTR. RATE CALC > 60 mL/min (>60)
[2022-01-12 16:02] LABS: ALANINE AMINOTRANSFERASE 16 U/L (12-78); ALBUMIN 2.1 g/dL (3.4-5.0); ALKALINE PHOSPHATASE 160 U/L (46-116); ASPARTATE AMINOTRANSFERASE 17 U/L (15-37); BILIRUBIN,TOTAL 0.3 mg/dL (0.1-1.0); LIPASE 113 U/L (73-393); TOTAL PROTEIN, SERUM 8.3 g/dL (6.4-8.2)
[2022-01-12 16:04] LABS: LACTIC ACID 1.4 mmol/L (0.4-2.0)
[2022-01-12 16:10] LABS: B-TYPE NATRIURETIC PEPTIDE 20 pg/mL (0-100)
[2022-01-12 19:48] VITALS: BP 112/73
[2022-01-12] MEDS ORDERED: OXYGEN THERAPY IH SCH (20:00)
== END 2022-01-12 19:54 | disposition home or self-care (01) ==
LOC: EMS 15:05
DX: R09.02 Hypoxemia (principal); E11.65 Type 2 diabetes mellitus with hyperglycemia; E44.0 Moderate protein-calorie malnutrition; I10 Essential (primary) hypertension; E11.9 Type 2 diabetes mellitus without complications; Z68.20 Body mass index [BMI] 20.0-20.9, adult; Z20.822 Contact with and (suspected) exposure to COVID-19; Z79.899 Other long term (current) drug therapy
CPT/HCPCS: 71045; 80053; 83605; 83690; 83880; 84484; 85025; 87040; 93005; 99285; 36415-L1; 36415-TC